=== PATIENT | male | born 1975 | race African-American/Black ===

== ENCOUNTER 2022-12-23 15:53 | Inpatient (IN) | payer SELFPAY ==
[~2022-12-23] VITALS: Ht 195.5 cm; Wt 63.9 kg
--- NOTE | 2022-12-23 16:01 | ED General ---
General Chief Complaint: Dizziness/Syncope Stated Complaint: SYNCOPAL Source of Information: Patient, EMS History of Present Illness Date Seen by Provider: Dec 23, 2022 Time Seen by Provider: 15:50 Initial Comments 47-year-old male type I diabetic presents via EMS after he fell down in the parking lot of [facility]. EMS states that he originally did not want to come with them however they found his blood sugar to be in the 400s so he decided he would get checked out. He tells me that he has neuropathy in his feet and he simply got his feet crossed up causing him to fall down. Denies hitting his head or losing consciousness. He has no pain from the fall. He states his blood sugars been running in the 300 range recently. He takes a short acting insulin with meals and long-acting Lantus, 25 units at night. He states he has been compliant with his regimen. Couple of months ago he was living in [place]. At that time he had a stent placed in his pancreas and is currently trying to get his Medicaid switched to [place] as he moved back here about 5 or 6 weeks ago. He states in a couple of weeks he supposed to have his stent removed or replaced. He denies any recent illness to include fevers chills chest pain abdominal pain. On arrival he has really no complaints at all. EMS reported that his blood pressures were low during transport in the 80s systolic. Blood pressures are normal upon arrival here. He does tell me he has a history of alcoholism but "I had to stop because it was killing my body." He states for the last 4 days he has not had anything to drink. All other systems reviewed and negative except documented per HPI. Voice recognition software was used to help create this chart Allergies and Home Medications Allergies Coded Allergies: No Known Drug Allergies (Unverified , 12/23/22) Patient Home Medication List Home Medication List Reviewed: Yes Review of Systems Review of Systems Constitutional: see HPI Past [id number] Hx Patient Social History Tobacco Use?: Yes Use of E-Cig and/or Vaping dev: Yes Substance use?: No Alcohol Use?: Yes Past Medical History Surgery/Hospitalization HX: Hypertension, pancreatitis Physical Exam Vital Signs Vital Signs - First Documented 12/23/22 15:53 Temp 36.6 Pulse 104 Resp 16 B/P (MAP) 124/83 (97) Pulse Ox 95 O2 Delivery Room Air Capillary Refill : Height, Weight, BMI Height: '" Weight: lbs. oz. kg; BMI Method: General Appearance: No Apparent Distress, WD/WN HEENT: PERRL/EOMI, Normal ENT Inspection, Pharynx Normal Neck: Full Range of Motion, Normal Inspection, Non Tender, Supple Respiratory: Chest Non Tender, Lungs Clear, Normal Breath Sounds, No Accessory Muscle Use, No Respiratory Distress Cardiovascular: Regular Rate, Rhythm, No Murmur, Normal Peripheral Pulses Gastrointestinal: Normal Bowel Sounds, No Organomegaly, No Pulsatile Mass, Non Tender, Soft Extremity: Normal Capillary Refill, Normal Inspection, Normal Range of Motion, Non Tender, No Calf Tenderness Neurologic/Psychiatric: Alert, Oriented x3, No Motor/Sensory Deficits, Normal Mood/Affect, oncology physician assistant II-XII Norm as Tested Skin: Normal Color, Warm/Dry Focused Exam Lactate Level 12/23/22 16:42: Lactic Acid Level 5.08*H Lactic Acid Level Laboratory Tests Test 12/23/22 16:42 Lactic Acid Level 5.08 MMOL/L (0.50-2.00) *H Progress/Results/Core Measures Suspected Sepsis SIRS Temperature: Pulse: Respiratory Rate: Laboratory Tests 12/23/22 15:55: White Blood Count 34.4*H Blood Pressure / Mean: 12/23/22 16:42: Lactic Acid Level 5.08*H Laboratory Tests 12/23/22 15:55: Creatinine 0.77, Platelet Count 139, Total Bilirubin 0.8 Results/Orders Lab Results Laboratory Tests Test 12/23/22 15:55 12/23/22 16:06 12/23/22 16:42 Range/Units White Blood Count 34.4 *H 4.3-11.0 10^3/uL Red Blood Count 3.74 L 4.30-5.52 10^6/uL Hemoglobin 12.9 L 13.3-17.7 g/dL Hematocrit 36 L 40-54 % Mean Corpuscular Volume 95 80-99 fL Mean Corpuscular Hemoglobin 35 H 25-34 pg Mean Corpuscular Hemoglobin Concent 36 32-36 g/dL Red Cell Distribution Width 12.4 10.0-14.5 % Platelet Count 139 130-400 10^3/uL Mean Platelet Volume 12.4 H 9.0-12.2 fL Immature Granulocyte % (Auto) 5 % Neutrophils (%) (Auto) 86 H 42-75 % Lymphocytes (%) (Auto) 3 L 12-44 % Monocytes (%) (Auto) 6 0-12 % Eosinophils (%) (Auto) 0 0-10 % Basophils (%) (Auto) 0 0-10 % Neutrophils # (Auto) 29.5 H 1.8-7.8 10^3/uL Lymphocytes # (Auto) 1.1 1.0-4.0 10^3/uL Monocytes # (Auto) 1.9 H 0.0-1.0 10^3/uL Eosinophils # (Auto) 0.0 0.0-0.3 10^3/uL Basophils # (Auto) 0.1 0.0-0.1 10^3/uL Immature Granulocyte # (Auto) 1.8 H 0.0-0.1 10^3/uL Neutrophils % (Manual) 73 % Lymphocytes % (Manual) 5 % Monocytes % (Manual) 5 % Eosinophils % (Manual) 0 % Basophils % (Manual) 0 % Band Neutrophils 16 % Sodium Level 127 L 135-145 MMOL/L Potassium Level 3.2 L 3.6-5.0 MMOL/L Chloride Level 90 L 98-107 MMOL/L Carbon Dioxide Level 19 L 21-32 MMOL/L Anion Gap 18 H 5-14 MMOL/L Blood Urea Nitrogen 19 H 7-18 MG/DL Creatinine 0.77 0.60-1.30 MG/DL Estimat Glomerular Filtration Rate 111 BUN/Creatinine Ratio 25 Glucose Level 361 H 70-105 MG/DL Calcium Level 9.5 8.5-10.1 MG/DL Corrected Calcium 9.5 8.5-10.1 MG/DL Total Bilirubin 0.8 0.1-1.0 MG/DL Aspartate Amino Transf (AST/SGOT) 74 H 5-34 U/L Alanine Aminotransferase (ALT/SGPT) 109 H 0-55 U/L Alkaline Phosphatase 800 H 40-136 U/L Total Protein 7.8 6.4-8.2 GM/DL Albumin 4.0 3.2-4.5 GM/DL Glucometer 343 H 70-110 MG/DL Lactic Acid Level 5.08 *H 0.50-2.00 MMOL/L My Orders Orders - ARMEN GOULD DO Cbc With Automated Diff (12/23/22 15:56) Comprehensive Metabolic Panel (12/23/22 15:56) Ua Culture If Indicated (12/23/22 15:56) Manual Differential (12/23/22 15:55) Chest 1 View Ap/Pa Only (12/23/22 16:08) Lactic Acid Analyzer (12/23/22 16:22) Blood Culture (12/23/22 16:22) Ceftriaxone 1 Gm Pre-Mix (Rocephin 1 Gm (12/23/22 17:00) Insulin Regular Drip (Myxredlin 100 Unit (12/23/22 17:15) Lactated Ringers (Lr 1000 Ml Iv Solution (12/23/22 17:15) Potassium Cl 10meq/50ml Ivpb (Kcl 10 Meq (12/23/22 17:15) Ed Admission (Communication) (12/23/22 17:19) Medications Given in ED Current Medications Medications Dose Ordered Sig/Paulette Route Start Time Stop Time Status Last Admin Dose Admin Ceftriaxone Sodium/Dextrose 50 ml @ 100 mls/hr ONCE ONCE IV 12/23/22 17:00 12/23/22 17:29 12/23/22 17:11 100 MLS/HR Vital Signs/I&O 12/23/22 15:53 Temp 36.6 Pulse 104 Resp 16 B/P (MAP) 124/83 (97) Pulse Ox 95 O2 Delivery Room Air Capillary Refill : Critical Care Note Critical Care Total Time (minutes) 45 Departure Communication (Admissions) Patient is hemodynamically stable. On arrival he is alert, oriented and nontoxic-appearing. He really has no specific complaints. He himself states he does not think he passed out by bystanders insisted to EMS that he had. He is limited tachycardic but his blood pressures in the 100 systolic range. He is very slight ability suspect that this is likely normal for him. He has a normal MAP. Normal respiratory rate. Initial work-up for DKA revealed a leukocytosis of 34,000. Without I had ordered a chest x-ray for further search for source of infection. Indeed it does look like he is got a right middle lobe infiltrate. He does not have a ton of respiratory symptoms with his tachycardia as well as infiltrate and leukocytosis I went had and ordered him some Rocephin. He does not have any abdominal pain but he is supposed to have his pancreatic stent taken out in a couple of weeks. He has not yet established care here and does not have his Medicaid yet. We will go ahead and admit him for DKA, given IV fluid bolus initially and started on an insulin drip. I have given him LR with potassium minute prior to starting an insulin drip as his potassium was slightly low. I think he would benefit from social media editor consult while he is in the hospital to help him arrange Medicaid and further organize his stent care. The patient is comfortable agreeable to this current plan of care. He is pending transport. I spoke with Dr. Finnegan and she accepts the patient in admission to the ICU. I have placed bridge orders. Impression Primary Impression: DKA (diabetic ketoacidosis) Qualified Codes: E10.10 - Type 1 diabetes mellitus with ketoacidosis without coma Additional Impression: Leukocytosis Qualified Codes: D72.829 - Elevated white blood cell count, unspecified Disposition: 30 STILL A PATIENT Condition: Stable Admissions Decision to Admit Reason: Admit from ER (General) ARMEN GOULD DO Dec 23, 2022 16:01
[2022-12-23 16:05] LABS: BASOPHILS # (AUTO) 0.1 10^3/uL (0.0-0.1); BASOPHILS % (AUTO) 0 % (0-10); EOSINOPHILS % (AUTO) 0 % (0-10); HEMATOCRIT 36 % (40-54); HEMOGLOBIN 12.9 g/dL (13.3-17.7); LYMPHOCYTES # (AUTO) 1.1 10^3/uL (1.0-4.0); LYMPHOCYTES % (AUTO) 3 % (12-44); MEAN CORPUSCULAR HEMOGLOBIN 35 pg (25-34); MEAN CORPUSCULAR HGB CONC 36 g/dL (32-36); MEAN CORPUSCULAR VOLUME 95 fL (80-99); MEAN PLATELET VOLUME 12.4 fL (9.0-12.2); MONOCYTES # (AUTO) 1.9 10^3/uL (0.0-1.0); MONOCYTES % (AUTO) 6 % (0-12); NEUTROPHILS # (AUTO) 29.5 10^3/uL (1.8-7.8); NEUTROPHILS % (AUTO) 86 % (42-75); PLATELET COUNT 139 10^3/uL (130-400)
[2022-12-23 16:07] LABS: WHITE BLOOD COUNT 34.4 10^3/uL (4.3-11.0)
[2022-12-23 16:24] LABS: BAND NEUTROPHILS 16 %; BASOPHILS % (MANUAL) 0 %; EOSINOPHILS % (MANUAL) 0 %; LYMPHOCYTES % (MANUAL) 5 %; MONOCYTES % (MANUAL) 5 %; NEUTROPHILS % (MANUAL) 73 %
[2022-12-23 16:27] LABS: BILIRUBIN,TOTAL 0.8 MG/DL (0.1-1.0); CALCIUM 9.5 MG/DL (8.5-10.1); CREATININE SERUM 0.77 MG/DL (0.60-1.30); POTASSIUM 3.2 MMOL/L (3.6-5.0); TOTAL PROTEIN 7.8 GM/DL (6.4-8.2)
--- NOTE | 2022-12-23 16:37 | Diagnostic Imaging Report ---
CLINICAL INDICATION: Patient with leukocytosis. EXAM: Portable chest x-ray upright view. COMPARISON: None. FINDINGS: Lungs/pleura: There is a small infiltrate involving the right lower lung field region. The remainder of the lungs are clear. There is no pneumothorax. There is no pleural effusion. Mediastinum: Unremarkable. Pulmonary vasculature: Unremarkable. Heart: Unremarkable. Bones/extrathoracic soft tissue: There are hypertrophic spurs involving the thoracic spine. IMPRESSION: There is a small infiltrate involving the right lower lung field region concerning for pneumonia. Dictated by: Dictated on workstation # [id number]
[2022-12-23] MEDS ORDERED: cefTRIAXone 1 GM PRE-MIX 50 ML IV ONE (17:00)
[2022-12-23] MEDS ORDERED: LACTATED RINGERS 1,000 ML IV SCH (17:15)
[2022-12-23] MEDS ORDERED: D5 1/2 NS 1000 ML IV SOLUTION 1,000 ML IV ONE (19:12)
[2022-12-23] MEDS ORDERED: inSUlin (REGULAR) HUMAN 1 UNIT/0.01 ML (CHARGE PER UNIT) IV ONE (19:45)
[2022-12-23 19:57] VITALS: BP 127/84
--- NOTE | 2022-12-23 19:59 | Tele-ICU Progress Note ---
Progress Note 47M DM1, pancreatic vs GB stent (he can not recall) a couple months ago, etoh with last drink 4 days ago, had EMS called after falling in the [employer] parking lot. Stated that he fell due to his neuropathy. Denied LOC or head trauma. However, bystanders insisted to EMS that he had lost conciousness.Glucose found to be in the 400s so he was transported for further evaluation. BP was in the 80s during transportation. In ED, BP had improved to the 100s. Found to have WBC 34, Na 127, K 3.2, CO2 19, Gap 18, Glucose 361, lactic 5.06, AST 74, ALT 109, Alk Phos 800. Beta hydroxy has been cancelled. - DKA: Suspected DKA with hyperglycemia and anion gap acidosis. Although also has lactic acidosis. Beta-hydroxy added on to ED labs. Insulin gtt already running with glucose <200 now. Continue with protocol until anion gap resolves. - sepsis: source unknown. CXR with small infiltrate and patient has cough productive of green sputum, possible early pneumonia. Cultures pending. Rocephin initiated. - EtOH: Remains in the window for withdrawals risk with last drink being 4-5 days ago. Monitor for evidence of withdrawal syndrome. Start CIWA if needed. - hyponatremia: Na 127, likely hypovolemic. Avoid protocolized 1/2NS in the DKA protocol. Use NS when glucose >200 and D5LR when <200. - hypokalemia: K 3.2. Replacement ongoing with 40 meq IV. Will give additional 40 PO given ongoing insulin gtt. - pancreatic vs GB stent: apparently was placed in [place] a couple months ago. He moved to [place] 5-6 weeks ago. He was told it was to come out or be exchanged in the next couple of weeks. Will defer to primary for appropriate consultations to establish ongoing care. Patient assessed via real-time audiovisual monitoring system. CCT 28 min Focused Exam Lactate Level 12/23/22 16:42: Lactic Acid Level 5.08*H Height, Weight, BMI Height: '" Weight: lbs. oz. kg; 18.00 BMI Method: Lactic Acid Level Laboratory Tests Test 12/23/22 16:42 Lactic Acid Level 5.08 MMOL/L (0.50-2.00) *H ESA TOVAR MD Dec 23, 2022 19:59
[2022-12-23] MEDS ORDERED: D5 1/2 NS 1000 ML IV SOLUTION 1,000 ML IV SCH (20:00)
[2022-12-23] MEDS ORDERED: KCL 20 MEQ TAB (K-DUR) PO ONE (20:00)
[2022-12-23] MEDS ORDERED: 1/2 NS IV SOLUTION 1,000 ML IV SCH (20:00)
[2022-12-23] MEDS ORDERED: POTASSIUM CL 10MEQ/50ML IVPB 50 ML IV SCH (20:00)
[2022-12-23] MEDS ORDERED: NS IV 1000 ML 1,000 ML IV SCH (20:00)
[2022-12-23] MEDS ORDERED: D5 LR IV SOLUTION 1,000 ML IV PRN (20:00)
[2022-12-23] MEDS: POTASSIUM CL 10MEQ/50ML IVPB 50 ML IV SCH ×3 (20:12→21:15)
[2022-12-23] MEDS: POTASSIUM CHLORIDE INJ 40 MEQ in LACTATED RINGERS 1,000 ML IV SCH (20:19)
[2022-12-23 20:28] LABS: CALCIUM 9.7 MG/DL (8.5-10.1); CREATININE SERUM 0.8 MG/DL (0.60-1.30); PHOSPHORUS 2.1 MG/DL (2.3-4.7); POTASSIUM 3.1 MMOL/L (3.6-5.0)
[2022-12-23] MEDS ORDERED: RT-ALBUTEROL/IPRATROPIUM 3 ML (DUONEB) VIAL INH PRN (20:30)
[2022-12-23] MEDS: NS IV 1000 ML 1,000 ML IV PRN (22:09)
[2022-12-24] MEDS: POTASSIUM CL 10MEQ/50ML IVPB 50 ML IV SCH ×7 (00:07→07:27)
[2022-12-24] MEDS: POTASSIUM CHLORIDE INJ 40 MEQ in LACTATED RINGERS 1,000 ML IV SCH (00:15)
[2022-12-24] MEDS ORDERED: METHYL SALICYLATE/MENTHOL (BENGAY, MUSCLE RUB) 3 OZ TUBE TP PRN (00:15)
[2022-12-24] MEDS ORDERED: HYDROcodone/APAP 5 MG/325 MG (LORTAB) TAB PO PRN (00:15)
[2022-12-24] MEDS ORDERED: ACETAMINOPHEN 325 MG TABLET PO PRN (00:15)
[2022-12-24 00:47] LABS: POTASSIUM 3.2 MMOL/L (3.6-5.0)
[2022-12-24] MEDS ORDERED: GABAPENTIN 300 MG (NEURONTIN) CAP ONE (00:47)
[2022-12-24 00:48] LABS: CALCIUM 8.6 MG/DL (8.5-10.1)
[2022-12-24] MEDS: GABAPENTIN 300 MG (NEURONTIN) CAP PO SCH ×2 (00:48→08:01)
[2022-12-24 00:52] LABS: CREATININE SERUM 0.67 MG/DL (0.60-1.30)
[2022-12-24] MEDS ORDERED: KCL 20 MEQ TAB (K-DUR) PO ONE (01:00)
[2022-12-24 05:21] LABS: BASOPHILS # (AUTO) 0.1 10^3/uL (0.0-0.1); BASOPHILS % (AUTO) 0 % (0-10); MEAN PLATELET VOLUME 12.3 fL (9.0-12.2)
[2022-12-24 05:23] LABS: EOSINOPHILS % (AUTO) 0 % (0-10); HEMATOCRIT 33 % (40-54); LYMPHOCYTES # (AUTO) 1.5 10^3/uL (1.0-4.0); LYMPHOCYTES % (AUTO) 6 % (12-44); MEAN CORPUSCULAR HEMOGLOBIN 35 pg (25-34); MEAN CORPUSCULAR HGB CONC 37 g/dL (32-36); MEAN CORPUSCULAR VOLUME 97 fL (80-99); MONOCYTES # (AUTO) 1.3 10^3/uL (0.0-1.0); MONOCYTES % (AUTO) 5 % (0-12); NEUTROPHILS # (AUTO) 20.6 10^3/uL (1.8-7.8); NEUTROPHILS % (AUTO) 83 % (42-75); PLATELET COUNT 121 10^3/uL (130-400); WHITE BLOOD COUNT 24.8 10^3/uL (4.3-11.0)
[2022-12-24] MEDS: NS IV 1000 ML 1,000 ML IV PRN (05:27)
[2022-12-24 05:44] LABS: ALBUMIN 3.4 GM/DL (3.2-4.5); POTASSIUM 3.9 MMOL/L (3.6-5.0)
[2022-12-24 05:46] LABS: CALCIUM 9.3 MG/DL (8.5-10.1)
[2022-12-24 05:47] LABS: TOTAL PROTEIN 6.7 GM/DL (6.4-8.2)
[2022-12-24 05:49] LABS: BILIRUBIN,TOTAL 0.7 MG/DL (0.1-1.0)
[2022-12-24 05:50] LABS: PHOSPHORUS 2.5 MG/DL (2.3-4.7)
[2022-12-24 05:51] LABS: CREATININE SERUM 0.75 MG/DL (0.60-1.30)
[2022-12-24] MEDS ORDERED: NS IV 500 ML 500 ML IV PRN (06:15)
--- NOTE | 2022-12-24 08:30 | History & Physical ---
HPI History of Present Illness: Got dizzy and feet went out from under him in the parking lot and he fell yesterday afternoon. He states he was feeling a little down in the last few days. Dizziness kind of hit him suddenly, he stood up from car and took a couple of steps and then fell. He thinks he got up to fast. He had been feeling kind of weak the last few days. He notes that when he has that happen, he knows he needs to check his blood sugar. He usually uses CGM, but he ran out of sensors, uses [employer], was getting free in [place], and is waiting for them, he states his ex is supposed to be picking them up today and sending them. He notes he has a PCP in [place] that he would like for us to get information from, he has a pancreatic stent that needs replaced soon and he doesn't yet have [place] medicaid so is concerned about that. He has been in [place] last 5 years and he broke up with the girl he was with and had no other support there, ended up staying at a hotel, then lost job and then in a homeless penitentiary. Ended up in hospital and his cousin told him to come back home, he is staying with family here. He had to get a stent between his gall bladder, pancreas and liver somewhere, states he was told it needed to be drained because he had lost so much weight, states it drained cloudy fluid. He reports he weighed around 205 lbs about a year ago before the pancreas issues. He believes the stent is supposed to get replaced around January 08. He isn't sure what caused the blockage. Diabetes of uncertain type, states they have gone back and forth, diagnosed about 5 years ago, has been on insulin the whole time. This is the third or fourth time he has had DKA. Source: patient Date seen by provider: Dec 24, 2022 Time Seen by Provider: 08:20 Attending Physician Ellen,Local Physician PCP Admitting Physician: Briana Finnegan MD Attending Physician: Briana Finnegan MD Consult Date of Admission Dec 23, 2022 at 18:55 Home Medications Home Medications Reviewed patient Home Medication Reconciliation performed by pharmacy medication reconciliations morgue technician and/or nursing. Patients Allergies have been reviewed. Allergies Coded Allergies: No Known Drug Allergies (Unverified , 12/23/22) FAN-Thbuiu-Flzwai Hx Patient Social History Smoking Status: Current Everyday Smoker (1/2 ppd) Alcohol Use?: Yes (started drinking again about a week ago, had stopped for a couple of months, was drinking a pint and 6 pack per day; had half pint a week ago, last drink was about 7 days ago) Substance type: Marijuana Tobacco type used: Cigarettes Have you traveled recently?: No Immunizations Up To Date Influenza Vaccine Up-to-Date: Yes; Up-to-Date First/Initial COVID19 Vaccinat: Unsure date Second COVID19 Vaccination Jared: Unsure date Third COVID19 Vaccination Date: Unsure date COVID19 Booster (Date): Unsure date Past Medical History PMHx: Diabetes Neuropathy Pancreatitis SurgHx: Bile duct stent Family Medical History Significant Family History: Diabetes Review of Systems ([facility]) Constitutional: No fever EENTM: nose congestion; No throat pain Respiratory: cough; No short of breath Cardiovascular: No chest pain Gastrointestinal: RUQ (with coughing); No constipation; diarrhea (had diarrhea 6-8 months, was better after pancreatic stent, back to diarrhea last 3-4 days); No melena, No nausea, No vomiting Genitourinary: No dysuria Musculoskeletal: No joint pain, No muscle pain Skin: No rash Psychiatric/Neurological: Denies Anxiety, Denies Depressed Reviewed Test Results Reviewed Test Results Lab Laboratory Tests Test 12/23/22 15:55 12/23/22 16:06 12/23/22 16:42 12/23/22 19:09 Range/Units White Blood Count 34.4 *H 4.3-11.0 10^3/uL Red Blood Count 3.74 L 4.30-5.52 10^6/uL Hemoglobin 12.9 L 13.3-17.7 g/dL Hematocrit 36 L 40-54 % Mean Corpuscular Volume 95 80-99 fL Mean Corpuscular Hemoglobin 35 H 25-34 pg Mean Corpuscular Hemoglobin Concent 36 32-36 g/dL Red Cell Distribution Width 12.4 10.0-14.5 % Platelet Count 139 130-400 10^3/uL Mean Platelet Volume 12.4 H 9.0-12.2 fL Immature Granulocyte % (Auto) 5 % Neutrophils (%) (Auto) 86 H 42-75 % Lymphocytes (%) (Auto) 3 L 12-44 % Monocytes (%) (Auto) 6 0-12 % Eosinophils (%) (Auto) 0 0-10 % Basophils (%) (Auto) 0 0-10 % Neutrophils # (Auto) 29.5 H 1.8-7.8 10^3/uL Lymphocytes # (Auto) 1.1 1.0-4.0 10^3/uL Monocytes # (Auto) 1.9 H 0.0-1.0 10^3/uL Eosinophils # (Auto) 0.0 0.0-0.3 10^3/uL Basophils # (Auto) 0.1 0.0-0.1 10^3/uL Immature Granulocyte # (Auto) 1.8 H 0.0-0.1 10^3/uL Neutrophils % (Manual) 73 % Lymphocytes % (Manual) 5 % Monocytes % (Manual) 5 % Eosinophils % (Manual) 0 % Basophils % (Manual) 0 % Band Neutrophils 16 % Sodium Level 127 L 135-145 MMOL/L Potassium Level 3.2 L 3.6-5.0 MMOL/L Chloride Level 90 L 98-107 MMOL/L Carbon Dioxide Level 19 L 21-32 MMOL/L Anion Gap 18 H 5-14 MMOL/L Blood Urea Nitrogen 19 H 7-18 MG/DL Creatinine 0.77 0.60-1.30 MG/DL Estimat Glomerular Filtration Rate 111 BUN/Creatinine Ratio 25 Glucose Level 361 H 70-105 MG/DL Calcium Level 9.5 8.5-10.1 MG/DL Corrected Calcium 9.5 8.5-10.1 MG/DL Total Bilirubin 0.8 0.1-1.0 MG/DL Aspartate Amino Transf (AST/SGOT) 74 H 5-34 U/L Alanine Aminotransferase (ALT/SGPT) 109 H 0-55 U/L Alkaline Phosphatase 800 H 40-136 U/L Total Protein 7.8 6.4-8.2 GM/DL Albumin 4.0 3.2-4.5 GM/DL Glucometer 343 H 194 H 70-110 MG/DL Lactic Acid Level 5.08 *H 0.50-2.00 MMOL/L Test 12/23/22 19:57 12/23/22 20:17 12/23/22 21:25 12/23/22 21:48 Range/Units Sodium Level 130 L 135-145 MMOL/L Potassium Level 3.1 L 3.6-5.0 MMOL/L Chloride Level 97 L 98-107 MMOL/L Carbon Dioxide Level 17 L 21-32 MMOL/L Anion Gap 16 H 5-14 MMOL/L Blood Urea Nitrogen 16 7-18 MG/DL Creatinine 0.80 0.60-1.30 MG/DL Estimat Glomerular Filtration Rate 110 BUN/Creatinine Ratio 20 Glucose Level 191 H 70-105 MG/DL Lactic Acid Level 5.13 *H 2.51 *H 0.50-2.00 MMOL/L Calcium Level 9.7 8.5-10.1 MG/DL Phosphorus Level 2.1 L 2.3-4.7 MG/DL Magnesium Level 2.0 1.6-2.4 MG/DL Lipase 4 L 8-78 U/L Beta-Hydroxybutyrate (Chem panel) 0.20 0.00-0.27 MMOL/L Glucometer 256 H 264 H 70-110 MG/DL Test 12/23/22 22:29 12/23/22 23:31 12/24/22 00:28 12/24/22 00:29 Range/Units Glucometer 202 H 234 H 162 H 70-110 MG/DL Sodium Level 128 L 135-145 MMOL/L Potassium Level 3.2 L 3.6-5.0 MMOL/L Chloride Level 101 98-107 MMOL/L Carbon Dioxide Level 19 L 21-32 MMOL/L Anion Gap 8 5-14 MMOL/L Blood Urea Nitrogen 14 7-18 MG/DL Creatinine 0.67 0.60-1.30 MG/DL Estimat Glomerular Filtration Rate 116 BUN/Creatinine Ratio 21 Glucose Level 158 H 70-105 MG/DL Lactic Acid Level 1.80 0.50-2.00 MMOL/L Calcium Level 8.6 8.5-10.1 MG/DL Test 12/24/22 01:35 12/24/22 02:33 12/24/22 03:30 12/24/22 04:37 Range/Units Glucometer 249 H 189 H 189 H 227 H 70-110 MG/DL Test 12/24/22 05:13 12/24/22 05:35 12/24/22 06:34 12/24/22 07:27 Range/Units White Blood Count 24.8 H 4.3-11.0 10^3/uL Red Blood Count 3.39 L 4.30-5.52 10^6/uL Hemoglobin 12.0 L 13.3-17.7 g/dL Hematocrit 33 L 40-54 % Mean Corpuscular Volume 97 80-99 fL Mean Corpuscular Hemoglobin 35 H 25-34 pg Mean Corpuscular Hemoglobin Concent 37 H 32-36 g/dL Red Cell Distribution Width 12.1 10.0-14.5 % Platelet Count 121 L 130-400 10^3/uL Mean Platelet Volume 12.3 H 9.0-12.2 fL Immature Granulocyte % (Auto) 5 % Neutrophils (%) (Auto) 83 H 42-75 % Lymphocytes (%) (Auto) 6 L 12-44 % Monocytes (%) (Auto) 5 0-12 % Eosinophils (%) (Auto) 0 0-10 % Basophils (%) (Auto) 0 0-10 % Neutrophils # (Auto) 20.6 H 1.8-7.8 10^3/uL Lymphocytes # (Auto) 1.5 1.0-4.0 10^3/uL Monocytes # (Auto) 1.3 H 0.0-1.0 10^3/uL Eosinophils # (Auto) 0.0 0.0-0.3 10^3/uL Basophils # (Auto) 0.1 0.0-0.1 10^3/uL Immature Granulocyte # (Auto) 1.3 H 0.0-0.1 10^3/uL Percent Immature Platelet Fraction 13.5 H 0.0-7.6 % Sodium Level 133 L 135-145 MMOL/L Potassium Level 3.9 3.6-5.0 MMOL/L Chloride Level 105 98-107 MMOL/L Carbon Dioxide Level 18 L 21-32 MMOL/L Anion Gap 10 5-14 MMOL/L Blood Urea Nitrogen 13 7-18 MG/DL Creatinine 0.75 0.60-1.30 MG/DL Estimat Glomerular Filtration Rate 112 BUN/Creatinine Ratio 17 Glucose Level 157 H 70-105 MG/DL Calcium Level 9.3 8.5-10.1 MG/DL Corrected Calcium 9.8 8.5-10.1 MG/DL Phosphorus Level 2.5 2.3-4.7 MG/DL Magnesium Level 2.0 1.6-2.4 MG/DL Total Bilirubin 0.7 0.1-1.0 MG/DL Aspartate Amino Transf (AST/SGOT) 39 H 5-34 U/L Alanine Aminotransferase (ALT/SGPT) 84 H 0-55 U/L Alkaline Phosphatase 550 H 40-136 U/L Total Protein 6.7 6.4-8.2 GM/DL Albumin 3.4 3.2-4.5 GM/DL Glucometer 131 H 149 H 168 H 70-110 MG/DL Test 12/24/22 08:45 Range/Units Glucometer 350 H 70-110 MG/DL Radiology CXR 12/23/22: "IMPRESSION: There is a small infiltrate involving the right lower lung field region concerning for pneumonia." Physical Exam-([facility]) Physical Exam Vital Signs VS - Last 72 Hours, by Label 12/23/22 12/23/22 12/23/22 12/23/22 15:53 18:15 19:00 19:04 Temp 36.6 36.6 Pulse 104 114 123 123 Resp 16 16 20 B/P (MAP) 124/83 (97) 117/75 113/82 (92) Pulse Ox 95 100 100 O2 Delivery Room Air Room Air Room Air 12/23/22 12/23/22 12/23/22 12/23/22 19:15 19:30 19:45 19:57 Temp 36.6 Pulse 126 131 137 129 Resp 30 21 22 B/P (MAP) 117/94 (102) 91/78 (82) 127/84 (98) Pulse Ox 98 100 99 96 O2 Delivery Room Air Room Air Room Air 12/23/22 12/23/22 12/23/22 12/23/22 19:57 20:00 21:00 21:18 Temp 37.3 Pulse 128 124 121 Resp 32 30 B/P (MAP) 124/81 (95) 112/71 (85) 104/67 (79) Pulse Ox 96 96 98 97 O2 Delivery Room Air Room Air Room Air Room Air 12/23/22 12/23/22 12/23/22 12/23/22 21:30 22:00 23:00 23:59 Pulse 119 118 Resp 31 34 B/P (MAP) 109/75 (86) 98/65 (76) Pulse Ox 97 98 97 98 O2 Delivery Room Air Room Air Room Air Room Air 12/24/22 12/24/22 12/24/22 12/24/22 00:06 01:00 01:00 02:00 Pulse 112 106 106 104 Resp 20 26 B/P (MAP) 104/65 (77) 104/68 (80) 92/62 (72) Pulse Ox 98 99 98 O2 Delivery Room Air Room Air Room Air 12/24/22 12/24/22 12/24/22 12/24/22 03:00 04:00 04:00 05:00 Pulse 95 91 101 Resp 34 23 B/P (MAP) 97/72 (79) 92/64 (73) 98/70 (78) Pulse Ox 100 99 99 100 O2 Delivery Room Air Room Air Room Air Room Air 12/24/22 12/24/22 12/24/22 12/24/22 06:00 06:59 07:00 07:59 Temp 36.3 Pulse 90 88 88 Resp 37 21 B/P (MAP) 92/67 (75) 109/81 (90) Pulse Ox 100 100 O2 Delivery Room Air Room Air 12/24/22 12/24/22 12/24/22 12/24/22 08:00 08:00 09:00 10:00 Pulse 96 97 98 Resp 35 35 11 B/P (MAP) 115/84 (94) 115/91 (99) 115/78 (90) Pulse Ox 100 99 100 100 O2 Delivery Room Air Room Air Room Air Room Air Capillary Refill : Less Than 3 Seconds General Appearance: no apparent distress, thin Respiratory: lungs clear, normal breath sounds Cardiovascular: regular rate, rhythm, no murmur Gastrointestinal: normal bowel sounds, non tender, soft Extremities: no pedal edema Neurologic/Psychiatric: alert, normal mood/affect Skin: normal color, warm/dry Assessment/Plan Assessment/Plan Admission Status: Inpatient Order (span 2 midnights) Reason for Inpatient Admission: DKA requiring insulin drip (1) DKA (diabetic ketoacidosis) Status: Resolved Assessment & Plan: Gap closed with insulin drip and IVF overnight. Change to basal bolus insulin today. Qualifiers: Qualified Codes: E10.10 - Type 1 diabetes mellitus with ketoacidosis without coma (2) Right lower lobe pneumonia Status: Acute Assessment & Plan: Ceftriaxone started in ER. He did have lactic acidosis and leukocytosis on admit, but it is unclear if he had sepsis as his picture was complicated by DKA and symptoms more consistent with DKA/dehydration than infect ion. Given CXR findings, will treat for pneumonia. (3) Pre-syncope Status: Acute Assessment & Plan: Suspect secondary to hypovolemia- has had diarrhea for a few days and was in DKA. (4) Diabetes Status: Chronic Assessment & Plan: Resume basal bolus insulin. Qualifiers: Qualified Codes: E10.65 - Type 1 diabetes mellitus with hyperglycemia (5) Neuropathy Status: Chronic Assessment & Plan: Resume home meds when verified. (6) High risk social situation Status: Chronic Assessment & Plan: resident services supervisor consulted for assistance with Medicaid. Reports stable living situation with family currently. (7) History of heavy alcohol consumption Status: Chronic Assessment & Plan: Last drink a week ago. He reports he knows he needs to abstain due to his pancreatitis and is working on that. (8) Elevated liver enzymes Status: Acute Assessment & Plan: Uncertain baseline with recent pancreas issue and stenting, but they are trending down since admit. Requesting records from [place] for further information. (9) History of pancreatitis Status: Chronic Assessment & Plan: With stenting, patient unsure of reason for stent, records requested. Lipase nml at admit. (10) Diarrhea Status: Chronic Assessment & Plan: Suspect possible pancreatic insufficiency/obstruction given his report of prolonged diarrhea prior to stenting and recurrence recently. Stool cultures ordered. (11) DVT prophylaxis Status: Acute Assessment & Plan: Enoxaparin BRIANA FINNEGAN MD Dec 24, 2022 08:30
[2022-12-24] MEDS ORDERED: inSUlin ASPART (NovoLOG) 1 UNIT/0.01 ML (CHARGE PER UNIT) SC NR ×2 (09:00→12:45)
[2022-12-24] MEDS ORDERED: cefTRIAXone 1 GM PRE-MIX 50 ML IV SCH (09:00)
--- NOTE | 2022-12-24 09:05 | Tele-ICU Progress Note ---
Subjective Date Seen by a Provider: Dec 24, 2022 Time Seen by a Provider: 09:04 Subjective/Events-last exam (Tele-ICU Physician , Progress Note ) Service provided via interactive audio and video telecommunications E-CARE system to a patient admitted to ICU bed in [facility]. Patient is seen today due to persistent need of ICU care Available chart/ vitals / labs / Images reviewed Video assessment done using teleICU camera, rest of exam as per RN He is a 47-year-old -[place] male with past medical history of type 1 diabetes mellitus and 3 or 4 attacks of DKA in the past apparently had a stent in the either pancreatic or gallbladder stent and he does not know the details which was done in [place] now he moved to the [facility] and he has not had any primary care physician yet. Reportedly he needs to have his stent removed in couple of weeks He is presented to the emergency room with complaint of syncopal episode and he thought he had leg weakness due to neuropathy but bystanders reported that he had a loss of consciousness. EMS found his glucose over 400 hence he is brought to the emergency room and he is admitted to the intensive care unit with a diagnosis of diabetic ketoacidosis and started on IV insulin. He had a found to be elevated liver enzymes it is not clear whether it is a new or old. He also has a leukocytosis which is> 34,000. Today he is feeling somewhat better. His anion gap is closed and afebrile. Impression 1. Diabetic ketoacidosis due to noncompliance with insulin 2. Diabetic peripheral neuropathy 3. Syncopal episode probably due to volume depletion 4. Acute kidney injury due to volume depletion 5. Rule out any sepsis from biliary tree. Recommendations 1. We will hydrate the patient with intravenous fluids 2. IV antibiotics 3. Wean insulin drip as tolerated and start on sliding scale coverage. He closed his anion gap today even though his blood sugars are high. 4. We will get an ultrasonogram of the gallbladder and biliary ducts 5. He is eventually needs to be referred to inspector assembly for addressing his biliary stents. I am remotely monitoring this patient from Tele icu station in [place]. I am unable to do the bedside exam, and history/physical and pertinent information is taken from other notes in the computer and bedside staff. Certain portions of this document may have been dictated utilizing voice recognition technology such as [employer]. Inherent to this technology, typographical and grammatical errors may exist. As much as I am diligent to identify and correct to these mistakes, some errors may remain in the document. Critical care time due to gated to this patient today is-30 minutes aproximately Sepsis Event Evaluation Height, Weight, BMI Height: '" Weight: lbs. oz. kg; 16.71 BMI Method: Focused Exam Lactate Level 12/23/22 19:57: Lactic Acid Level 5.13*H 12/23/22 21:48: Lactic Acid Level 2.51*H 12/24/22 00:29: Lactic Acid Level 1.80 Exam Exam Patient acknowledged, consented, and participated in this virtual visit which was conducted using real time audio/video Vital Signs Date Time Temp Pulse Resp B/P (MAP) Pulse Ox O2 Delivery O2 Flow Rate FiO2 12/24/22 07:59 36.3 12/24/22 07:00 88 21 109/81 (90) 100 Room Air 12/24/22 06:59 88 12/24/22 06:00 90 37 92/67 (75) 100 Room Air 12/24/22 05:00 101 23 98/70 (78) 100 Room Air 12/24/22 04:00 99 Room Air 12/24/22 04:00 91 92/64 (73) 99 Room Air 12/24/22 03:00 95 34 97/72 (79) 100 Room Air 12/24/22 02:00 104 26 92/62 (72) 98 Room Air 12/24/22 01:00 106 12/24/22 01:00 106 104/68 (80) 99 Room Air 12/24/22 00:06 112 20 104/65 (77) 98 Room Air 12/23/22 23:59 98 Room Air 12/23/22 23:00 118 34 98/65 (76) 97 Room Air 12/23/22 22:00 119 31 109/75 (86) 98 Room Air 12/23/22 21:30 97 Room Air 12/23/22 21:18 37.3 121 30 104/67 (79) 97 Room Air 12/23/22 21:00 124 112/71 (85) 98 Room Air 12/23/22 20:00 128 32 124/81 (95) 96 Room Air 12/23/22 19:57 96 Room Air 12/23/22 19:57 36.6 129 96 12/23/22 19:45 137 22 127/84 (98) 99 Room Air 12/23/22 19:30 131 21 91/78 (82) 100 Room Air 12/23/22 19:15 126 30 117/94 (102) 98 Room Air 12/23/22 19:04 123 12/23/22 19:00 123 20 113/82 (92) 100 Room Air 12/23/22 18:15 36.6 114 16 117/75 100 Room Air 12/23/22 15:53 36.6 104 16 124/83 (97) 95 Room Air I & O 12/24/22 07:00 Intake Total 4950 ml Output Total 1800 ml Balance 3150 ml Height & Weight Height: '" Weight: lbs. oz. kg; 16.71 BMI Method: General Appearance: No Apparent Distress, WD/WN HEENT: PERRL/EOMI, Normal ENT Inspection, Pharynx Normal Neck: Full Range of Motion, Normal Inspection, Non Tender, Supple Respiratory: Chest Non Tender, Lungs Clear, Normal Breath Sounds, No Accessory Muscle Use, No Respiratory Distress Cardiovascular: Regular Rate, Rhythm, No Murmur, Normal Peripheral Pulses Capillary Refill: Less Than 3 Seconds Extremity: Normal Capillary Refill, Normal Inspection, Normal Range of Motion, Non Tender, No Calf Tenderness Neurologic/Psychiatric: Alert, Oriented x3, No Motor/Sensory Deficits, Normal Mood/Affect, med spa manager II-XII Norm as Tested Skin: Normal Color, Warm/Dry Other comments PE PER RN Results Lab Laboratory Tests 12/23/22 15:55 12/23/22 19:57 12/24/22 00:29 12/24/22 05:13 Assessment/Plan Assessment/Plan ABOVE Critical Care: Critically Ill Patient Time spent with patient (mins): 30 AISHWARYA HICKMAN MD Dec 24, 2022 09:05
[2022-12-24] MEDS ORDERED: ROSU20TA32 PO (11:01)
[2022-12-24] MEDS ORDERED: INSU100I10 SQ (11:01)
[2022-12-24] MEDS ORDERED: LISI5TAB20 PO (11:01)
[2022-12-24] MEDS ORDERED: INSU100I23 SQ (11:01)
[2022-12-24] MEDS ORDERED: GABA800T10 PO (11:01)
[2022-12-24] MEDS ORDERED: HYDR12.56 PO (11:01)
[2022-12-24] MEDS ORDERED: SERT-414 PO (11:01)
[2022-12-24] MEDS: inSUlin ASPART (NovoLOG) 1 UNIT/0.01 ML (CHARGE PER UNIT) SC SCH ×2 (11:24→16:00)
[2022-12-24] MEDS ORDERED: ENOXAPARIN INJECTION 30 MG/0.3 ML SYR SQ SCH (12:00)
[2022-12-24] MEDS ORDERED: GABAPENTIN 400 MG (NEURONTIN) CAP PO SCH (13:00)
--- NOTE | 2022-12-24 15:21 | Diagnostic Imaging Report ---
PROCEDURE: US Gallbladder. TECHNIQUE: Multiple real-time grayscale images were obtained over the right upper quadrant in various projections. INDICATION: Elevated liver enzymes. COMPARISON: None. FINDINGS: Visible portions of the pancreas are unremarkable. The tail is obscured by bowel gas. Visible portions of the aorta and IVC are unremarkable. The liver measures 24 cm in length. Echogenicity appears normal relative to the right kidney. There is no intrahepatic biliary dilatation. The gallbladder wall is thickened at 8 mm, but the gallbladder appears contracted. Initially, the patient was not NPO, but scanning was performed after six hours NPO. No stones are seen. The common bile duct measures 7 mm. There is reportedly a history of a common bile duct stent, but this is not identified on this exam. The main portal vein is hepatopetal. Sonographic Colby's sign is negative. The right kidney measures 12.4 cm in length. There is no hydronephrosis. No free fluid is seen. IMPRESSION: 1. Mildly prominent common bile duct. Choledocholithiasis is not excluded. If clinically indicated, MRCP could be considered. 2. No common bile duct stent is visible. There is no intrahepatic biliary dilatation. 3. Gallbladder wall thickening, thought to be due to contracted gallbladder. No stones or sonographic Colby's sign are present. 4. Hepatomegaly. Dictated by: Dictated on workstation # [id number]
[2022-12-24 18:30] VITALS: BP 136/99
[2022-12-25] MEDS ORDERED: MAGNESIUM 1 GM/100 ML IVPB 100 ML IV SCH (06:00)
[2022-12-25] MEDS ORDERED: KCL 20 MEQ TAB (K-DUR) PO SCH (06:00)
[2022-12-25] MEDS ORDERED: POTASSIUM CL 10MEQ/50ML IVPB 50 ML IV SCH (06:00)
[2022-12-25] MEDS ORDERED: SERTRALINE 100 MG (ZOLOFT) TAB PO SCH (09:00)
[2022-12-25] MEDS ORDERED: ROSUVASTATIN 20 MG (CRESTOR) TABLET PO SCH (09:00)
== END 2022-12-24 18:30 | disposition left against medical advice (07) | DRG 637 ==
LOC: ER FS 15:56 → ICU 18:55
PROVIDERS: ADMIT Family Medicine; ATTEND Family Medicine
DX: E10.10 Type 1 diabetes mellitus with ketoacidosis without coma (principal); A41.9 Sepsis, unspecified organism; J18.9 Pneumonia, unspecified organism; E87.1 Hypo-osmolality and hyponatremia; N17.9 Acute kidney failure, unspecified; I10 Essential (primary) hypertension; D72.829 Elevated white blood cell count, unspecified; E87.6 Hypokalemia; E86.1 Hypovolemia; R19.7 Diarrhea, unspecified; E86.9 Volume depletion, unspecified; E10.40 Type 1 diabetes mellitus with diabetic neuropathy, unspecified
CPT/HCPCS: 36415; 71045; 76705; 80048; 80053; 82010; 82947; 83605; 83690; 83735; 84100; 85007; 85025; 85027; 87040; 87081

== ENCOUNTER 2023-02-04 16:36 | Inpatient (IN) | payer SELFPAY ==
[~2023-02-04] VITALS: Ht 196 cm; Wt 68.8 kg
[~2023-02-04 16:36] MED LIST: GABA800T10 PO; HYDR12.56 PO; INSU100I10 SQ; INSU100I23 SQ; LISI5TAB20 PO; ROSU20TA32 PO; SERT-414 PO
[2023-02-04] MEDS ORDERED: NS IV 1000 ML 1,000 ML IV STA ×2 (16:41→17:40)
--- NOTE | 2023-02-04 16:49 | ED General ---
General Stated Complaint: SEIZURE Source of Information: Patient, EMS, Old Records Exam Limitations: No Limitations History of Present Illness Date Seen by Provider: February 04, 2023 Time Seen by Provider: 16:37 Initial Comments 47-year-old male with past medical history of type 1 diabetes, hypertension, hyperlipidemia, neuropathy, and prior episodes of seizures coming in via EMS from his workplace at [employer] due to altered mental status. On EMS arrival, his glucose was undetectably high, he had an episode where his hand locked up, and shortly after he had some general convulsions that lasted a few seconds. They stated he was not really postictal afterwards, but has been mildly confused. He stated he actually had a low blood sugar this morning around 70. He denies any fever, chest pain, shortness of breath, abdominal pain, nausea, vomiting, focal weakness or numbness, or any other concerns. Allergies and Home Medications Allergies Coded Allergies: No Known Drug Allergies (Unverified , 12/23/22) Patient Home Medication List Home Medication List Reviewed: Yes Gabapentin (Gabapentin) 800 Mg Tablet, 800 MG PO TID, (Reported) Entered as Reported by: STONEY LEE on 12/24/221100 Hydrochlorothiazide (Hydrochlorothiazide) 12.5 Mg Tablet, 12.5 MG PO DAILY, (Reported) Entered as Reported by: STONEY LEE on 12/24/22 110 Insulin Glargine,Hum.rec.anlog (Lantus Solostar) 100 Unit/Ml (3 Ml) Insuln.pen, 25 UNIT SQ BID, (Reported) Entered as Reported by: STONEY LEE on 12/24/22 110 Insulin Lispro (Humalog Kwikpen) 100 Unit/Ml Insuln.pen, UNIT SQ AC, (Reported) Entered as Reported by: STONEY LEE on 12/24/22 110 Lisinopril (Lisinopril) 5 Mg Tablet, 5 MG PO DAILY, (Reported) Entered as Reported by: STONEY LEE on 12/24/221100 Rosuvastatin Calcium (Rosuvastatin Calcium) 20 Mg Tablet, 20 MG PO DAILY, (Reported) Entered as Reported by: STONEY LEE on 12/24/221100 Sertraline HCl (Sertraline HCl) 100 Mg Tablet, 100 MG PO DAILY, (Reported) Entered as Reported by: STONEY LEE on 12/24/22 1101 Review of Systems Review of Systems Constitutional: No fever EENTM: no symptoms reported Respiratory: no symptoms reported Cardiovascular: no symptoms reported Gastrointestinal: no symptoms reported Genitourinary: no symptoms reported Musculoskeletal: no symptoms reported Skin: no symptoms reported Psychiatric/Neurological: See HPI Past Ogbepxc-Onmyfg-Nxduek Hx Patient Social History Substance use?: Yes Substance type: Marijuana Immunizations Up To Date First/Initial COVID19 Vaccinat: Unsure date Second COVID19 Vaccination Jared: Unsure date Third COVID19 Vaccination Date: Unsure date Past Medical History Surgery/Hospitalization HX: Hypertension, pancreatitis Family Medical History Diabetes Physical Exam Vital Signs Vital Signs - First Documented 02/04/23 16:40 Temp 36.4 Pulse 104 Resp 16 B/P (MAP) 137/85 (102) Pulse Ox 99 O2 Delivery Room Air Capillary Refill : Height, Weight, BMI Height: '" Weight: lbs. oz. kg; 16.71 BMI Method: General Appearance: No Apparent Distress, Chronically ill, Thin Eyes: Bilateral Eye Normal Inspection, Bilateral Eye PERRL, Bilateral Eye EOMI HEENT: PERRL/EOMI, Normal ENT Inspection, Pharynx Normal Neck: Full Range of Motion, Normal Inspection, Non Tender, Supple Respiratory: Chest Non Tender, Lungs Clear, Normal Breath Sounds, No Accessory Muscle Use, No Respiratory Distress Cardiovascular: No Edema, Normal Peripheral Pulses, Tachycardia Gastrointestinal: Normal Bowel Sounds, Non Tender, Soft; No Distended, No Guarding Back: Normal Inspection, No CVA Tenderness, No Vertebral Tenderness Extremity: Normal Capillary Refill, Normal Inspection, Normal Range of Motion, Non Tender, No Calf Tenderness, No Pedal Edema Neurologic/Psychiatric: Alert, Oriented x3, No Motor/Sensory Deficits, Normal Mood/Affect, pickup driver II-XII Norm as Tested, Other (Slow slightly slurred speech) Skin: Normal Color, Warm/Dry Focused Exam Lactate Level 02/04/23 16:45: Lactic Acid Level 8.92*H 02/04/23 19:00: Lactic Acid Level 1.55 Lactic Acid Level Laboratory Tests Test 02/04/23 16:45 02/04/23 19:00 Lactic Acid Level 8.92 MMOL/L (0.50-2.00) *H 1.55 MMOL/L (0.50-2.00) Progress/Results/Core Measures Suspected Sepsis SIRS Temperature: Pulse: Respiratory Rate: Laboratory Tests 02/04/23 16:45: White Blood Count 4.9 Blood Pressure / Mean: 02/04/23 16:45: Lactic Acid Level 8.92*H 02/04/23 19:00: Lactic Acid Level 1.55 Laboratory Tests 02/04/23 16:45: Creatinine 0.77, INR Comment 1.0, Platelet Count 234, Total Bilirubin 0.4 Results/Orders Lab Results Laboratory Tests Test 02/04/23 16:45 02/04/23 17:45 02/04/23 19:00 02/04/23 20:54 Range/Units White Blood Count 4.9 4.3-11.0 10^3/uL Red Blood Count 3.60 L 4.30-5.52 10^6/uL Hemoglobin 11.8 L 13.3-17.7 g/dL Hematocrit 40 40-54 % Mean Corpuscular Volume 111 H 80-99 fL Mean Corpuscular Hemoglobin 33 25-34 pg Mean Corpuscular Hemoglobin Concent 30 L 32-36 g/dL Red Cell Distribution Width 13.7 10.0-14.5 % Platelet Count 234 130-400 10^3/uL Mean Platelet Volume 11.3 9.0-12.2 fL Immature Granulocyte % (Auto) 0 % Neutrophils (%) (Auto) 80 H 42-75 % Lymphocytes (%) (Auto) 11 L 12-44 % Monocytes (%) (Auto) 9 0-12 % Eosinophils (%) (Auto) 0 0-10 % Basophils (%) (Auto) 1 0-10 % Neutrophils # (Auto) 3.9 1.8-7.8 10^3/uL Lymphocytes # (Auto) 0.5 L 1.0-4.0 10^3/uL Monocytes # (Auto) 0.4 0.0-1.0 10^3/uL Eosinophils # (Auto) 0.0 0.0-0.3 10^3/uL Basophils # (Auto) 0.0 0.0-0.1 10^3/uL Immature Granulocyte # (Auto) 0.0 0.0-0.1 10^3/uL Prothrombin Time 13.2 12.2-14.7 SEC INR Comment 1.0 0.8-1.4 Activated Partial Thromboplast Time 29 24-35 SEC Venous Blood pH 7.20 L 7.31-7.41 Venous Blood Partial Pressure CO2 38 L 40-52 MMHG Venous Blood HCO3 15 L 22-28 MMOL/L Sodium Level 113 *L 135-145 MMOL/L Potassium Level 5.1 H 3.6-5.0 MMOL/L Chloride Level 74 L 98-107 MMOL/L Carbon Dioxide Level 14 L 21-32 MMOL/L Anion Gap 25 H 5-14 MMOL/L Blood Urea Nitrogen 15 7-18 MG/DL Creatinine 0.77 0.60-1.30 MG/DL Estimat Glomerular Filtration Rate 111 BUN/Creatinine Ratio 19 Glucose Level 1165 *H 70-105 MG/DL Lactic Acid Level 8.92 *H 1.55 0.50-2.00 MMOL/L Calcium Level 9.1 8.5-10.1 MG/DL Corrected Calcium 9.0 8.5-10.1 MG/DL Magnesium Level 2.5 H 1.6-2.4 MG/DL Total Bilirubin 0.4 0.1-1.0 MG/DL Aspartate Amino Transf (AST/SGOT) 319 H 5-34 U/L Alanine Aminotransferase (ALT/SGPT) 249 H 0-55 U/L Alkaline Phosphatase 806 H 40-136 U/L Troponin I < 0.30 <0.30 NG/ML Total Protein 6.6 6.4-8.2 GM/DL Albumin 4.1 3.2-4.5 GM/DL Lipase 16 8-78 U/L Serum Alcohol < 10 <10 MG/DL Urine Color PALE YELLOW Urine Clarity CLEAR Urine pH 5.5 5-9 Urine Specific [place] <=1.005 1.016-1.022 Urine Protein NEGATIVE NEGATIVE Urine Glucose (UA) 3+ H NEGATIVE Urine Ketones TRACE H NEGATIVE Urine Nitrite NEGATIVE NEGATIVE Urine Bilirubin NEGATIVE NEGATIVE Urine Urobilinogen 0.2 < = 1.0 MG/DL Urine Leukocyte Esterase NEGATIVE NEGATIVE Urine RBC (Auto) NEGATIVE NEGATIVE Urine RBC NONE /HPF Urine WBC 0-2 /HPF Urine Squamous Epithelial Cells RARE /HPF Urine Crystals NONE /LPF Urine Bacteria NEGATIVE /HPF Urine Casts NONE /LPF Urine Mucus NEGATIVE /LPF Urine Culture Indicated NO Urine Opiates Screen NEGATIVE NEGATIVE Urine Oxycodone Screen NEGATIVE NEGATIVE Urine Methadone Screen NEGATIVE NEGATIVE Urine Propoxyphene Screen NEGATIVE NEGATIVE Urine Barbiturates Screen NEGATIVE NEGATIVE Ur Tricyclic Antidepressants Screen NEGATIVE NEGATIVE Urine Phencyclidine Screen NEGATIVE NEGATIVE Urine Amphetamines Screen NEGATIVE NEGATIVE Urine Methamphetamines Screen NEGATIVE NEGATIVE Urine Benzodiazepines Screen NEGATIVE NEGATIVE Urine Cocaine Screen NEGATIVE NEGATIVE Urine Cannabinoids Screen POSITIVE H NEGATIVE My Orders Orders - HANNAH ANDERSON MD Ct Head Wo (02/04/23 16:41) Cbc With Automated Diff (02/04/23 16:41) Comprehensive Metabolic Panel (02/04/23 16:41) Drug Screen Stat (Urine) (02/04/23 16:41) Lactic Acid Analyzer (02/04/23 16:41) Lipase (02/04/23 16:41) Magnesium (02/04/23 16:41) Protime With Inr (02/04/23 16:41) Partial Thromboplastin Time (02/04/23 16:41) Ua Culture If Indicated (02/04/23 16:41) Troponin I Fs (02/04/23 16:41) Chest 1 View Ap/Pa Only (02/04/23 16:41) Accucheck Stat ONCE (02/04/23 16:41) Ed Iv/Invasive Line Start (02/04/23 16:41) Ekg Tracing (02/04/23 16:41) Monitor-Rhythm Ecg Trace Only (02/04/23 16:41) Ns Iv 1000 Ml (Sodium Chloride 0.9%) (02/04/23 16:41) Venous Blood Gas (02/04/23 16:41) Alcohol (02/04/23 16:41) Beta Hydroxybutyrate (02/04/23 16:41) Levetiracetam Injection (Keppra Injectio (02/04/23 16:45) Lorazepam Injection (Ativan Injection) (02/04/23 17:20) Lorazepam Injection (Ativan Injection) (02/04/23 17:45) Ct Abdomen/Pelvis W (02/04/23 17:40) Ns Iv 1000 Ml (Sodium Chloride 0.9%) (02/04/23 17:40) Insulin (Regular) Human (Novolin R (Per (02/04/23 17:45) Catheter(Urinary) Insert & Ass 03,15 (02/04/23 17:40) Insulin Regular Drip (Myxredlin 100 Unit (02/04/23 17:45) Accucheck Q1hr Q1HR (02/04/23 17:40) Potassium Cl 10meq/50ml Ivpb (Kcl 10 Meq (02/04/23 17:45) Follow Hypoglycemia Protocol (02/04/23 17:40) Iohexol Injection (Omnipaque 350 Mg/Ml 1 (02/04/23 18:00) Received Contrast (Hold Metformin- Contr (02/04/23 18:00) Ns (Ivpb) (Sodium Chloride 0.9% Ivpb Bag (02/04/23 18:00) Levetiracetam 1000 Mg/Ns 100ml (Keppra I (02/04/23 18:00) Venous Blood Gas (02/04/23 20:54) Medications Given in ED Current Medications Medications Dose Ordered Sig/Paulette Route Start Time Stop Time Status Last Admin Dose Admin Insulin Human Regular 10 unit ONCE ONCE IV 02/04/23 17:45 02/04/23 17:46 DC 02/04/23 18:10 10 UNIT Iohexol 100 ml ONCE ONCE IV 02/04/23 18:00 02/04/23 18:33 DC 02/04/23 18:13 80 ML Lorazepam 2 mg PRN PRN IVP 02/04/23 17:45 02/04/23 17:20 1 MG Sodium Chloride 100 ml ONCE ONCE IV 02/04/23 18:00 02/04/23 18:33 DC 02/04/23 18:14 100 ML Vital Signs/I&O 02/04/23 16:40 Temp 36.4 Pulse 104 Resp 16 B/P (MAP) 137/85 (102) Pulse Ox 99 O2 Delivery Room Air Capillary Refill : Progress Note : Progress Note 47-year-old male with above history coming in after seizure-like episode. ABCs were intact and vitals were stable on presentation although he did appear postictal. History was difficult to obtain as he was confused. An IV was placed and basic labs were obtained. His glucose is elevated greater than 1100, anion gap elevated 25, normal creatinine, normal white blood cell count, elevated lactate 8.9, pseudohyponatremia of 113 with a correcting to 130, pH 7.2, bicarb 15, ketones in the urine, potassium of 5.1. He was given 3 L of IV fluids in total, IV potassium, IV insulin bolus followed by an insulin drip. He was also given Ativan after seizure witnessed here in the ER as well as Keppra. CT head negative for acute findings. CT abdomen pelvis with nothing obviously acute, but they recommended an MRCP potentially. I contacted Dr. Luong who will admit the patient to the intensive care unit for further evaluation and management, I then contacted the ICU physician and give signout ECG Initial ECG Impression Date: February 04, 2023 Initial ECG Impression Time: 17:42 Initial ECG Rate: 102 Initial ECG Rhythm: S.Tach Comment Narrow QRS, borderline right axis deviation, no STEMI Diagnostic Imaging Diagonstic Imaging: Xray (chest), CT (head) Comments [facility], [place] NAME: SERINA SHORE [facility] REC#: [id number] PT STATUS: REG ER : 1975 PHYSICIAN: HANNAH ANDERSON MD ADMIT DATE: 02/04/23/ER FS Draft Date of Exam:02/04/23 CHEST 1 VIEW AP/PA ONLY INDICATION: Seizure. Altered mental status. COMPARISON: 12/23/2022. FINDINGS: Lungs are slightly diminished in terms of overall volume. Some mild perihilar atelectasis. The prior opacities at the right base on comparison examination have resolved. There is no new consolidation or pneumonia. There is no effusion. There is no pneumothorax. Heart size is appropriate. Pulmonary vascularity is normal. IMPRESSION: 1. Mildly diminished lung volumes with minimal perihilar atelectasis. There are no findings of recurrent pneumonia or edema. Dictated on workstation # [id number] Dict: 02/04/23 1720 Trans: 02/04/23 1722 [id number] Interpreted by: CORINNE DOMINGUEZ MD Electronically signed by: NAME: SERINA SHORE [employer] REC#: [id number] PT STATUS: REG ER : 1975 PHYSICIAN: HANNAH ANDERSON MD ADMIT DATE: 02/04/23/ER FS Signed Date of Exam:02/04/23 CT ABDOMEN/PELVIS W INDICATION: Altered mental status, elevated liver enzymes. TECHNIQUE: Multiple contiguous axial images were obtained through the abdomen and pelvis after administration of intravenous contrast. Auto Exposure Controls were utilized during the CT exam to meet ALARA standards for radiation dose reduction. All CT scans use one or more of the following dose optimizing techniques: Automated exposure control, MA and/or KvP adjustment based on patient size and exam type or iterative reconstruction. There is no previous CT for comparison. FINDINGS: Visualized portions of the lung bases appear clear. There were no pleural fluid collections. There is no free intraperitoneal air. The liver shows no discrete focal lesion. Portal vein appears to be patent. Gallbladder is contracted, and therefore its evaluation is limited. The spleen and adrenals and kidneys appear normal. There are multiple calcifications scattered throughout the pancreas compatible with chronic pancreatitis, with dilatation of the pancreatic duct. There is a questionable pancreatic duct stone. There is no retroperitoneal mass or adenopathy. There is no ascites. There is a Ovalles catheter in the bladder, but the bladder is not decompressed. Intestinal loops show prominent stool throughout the colon. There is distention of the stomach. There is a lytic lesion in the right iliac bone measuring 2.8 cm, of uncertain etiology. MRI or bone scan may be helpful for further evaluation. IMPRESSION: No focal liver lesion is seen. There are pancreatic calcifications compatible with chronic pancreatitis, with possible pancreatic duct stone, there is dilatation of the pancreatic duct. MRCP may be helpful for further evaluation. There is distention of the stomach. Intestinal loops show no overt obstruction. There is a Ovalles catheter in the bladder, but the bladder is not decompressed, evaluate for Ovalles catheter output. There is a lytic lesion in the right iliac bone of uncertain significance, consider MR evaluation. Dictated by: Dictated on workstation # [id number] Dict: 02/04/236 Trans: 02/04/231907 [id number] Interpreted by: ANGELA ROCHE MD Electronically signed by: ANGELA ROCHE MD 02/04/238 Critical Care Note Critical Care Start Time: 16:37 Stop Time: 20:57 Total Time (minutes) Patient was at significant risk for hemodynamic compromise given his metabolic abnormalities. He required frequent reassessment, insulin drip, and multiple conversations with different physicians. All time billed for critical care was separate from procedures. Departure Impression Primary Impression: DKA (diabetic ketoacidosis) Qualified Codes: E10.10 - Type 1 diabetes mellitus with ketoacidosis without coma Additional Impression: Seizure Disposition: 30 STILL A PATIENT Condition: Stable Admissions Decision to Admit Reason: Admit from ER (General) Decision to Admit/Date: February 04, 2023 Time/Decision to Admit Time: 17:50 Transfer Transfer Facility: [facility] Method of Transfer: EMS Departure-Patient Inst. Referrals: NO,LOCAL PHYSICIAN (PCP/Family) Primary Care Physician HANNAH ANDERSON MD February 04, 2023 16:49
[2023-02-04 16:56] LABS: BASOPHILS % (AUTO) 1 % (0-10); EOSINOPHILS % (AUTO) 0 % (0-10); HEMATOCRIT 40 % (40-54); HEMOGLOBIN 11.8 g/dL (13.3-17.7); LYMPHOCYTES # (AUTO) 0.5 10^3/uL (1.0-4.0); LYMPHOCYTES % (AUTO) 11 % (12-44); MEAN CORPUSCULAR HEMOGLOBIN 33 pg (25-34); MEAN CORPUSCULAR HGB CONC 30 g/dL (32-36); MEAN CORPUSCULAR VOLUME 111 fL (80-99); MEAN PLATELET VOLUME 11.3 fL (9.0-12.2); MONOCYTES # (AUTO) 0.4 10^3/uL (0.0-1.0); MONOCYTES % (AUTO) 9 % (0-12); NEUTROPHILS # (AUTO) 3.9 10^3/uL (1.8-7.8); NEUTROPHILS % (AUTO) 80 % (42-75); PLATELET COUNT 234 10^3/uL (130-400); WHITE BLOOD COUNT 4.9 10^3/uL (4.3-11.0)
[2023-02-04 17:17] LABS: PROTHROMBIN TIME PATIENT 13.2 SEC (12.2-14.7)
[2023-02-04] MEDS ORDERED: LORazepam INJ 2 MG/ML (ATIVAN) VIAL ONE (17:20)
--- NOTE | 2023-02-04 17:23 | Diagnostic Imaging Report ---
INDICATION: Seizure. Altered mental status. COMPARISON: 12/23/2022. FINDINGS: Lungs are slightly diminished in terms of overall volume. Some mild perihilar atelectasis. The prior opacities at the right base on comparison examination have resolved. There is no new consolidation or pneumonia. There is no effusion. There is no pneumothorax. Heart size is appropriate. Pulmonary vascularity is normal. IMPRESSION: 1. Mildly diminished lung volumes with minimal perihilar atelectasis. There are no findings of recurrent pneumonia or edema. Dictated by: Dictated on workstation # [id number]
[2023-02-04 17:26] LABS: BUN/CREATININE RATIO 19; CARBON DIOXIDE 14 MMOL/L (21-32); CHLORIDE 74 MMOL/L (98-107); CREATININE SERUM 0.77 MG/DL (0.60-1.30); GFR ESTIMATED 111; POTASSIUM 5.1 MMOL/L (3.6-5.0); SODIUM 113 MMOL/L (135-145)
[2023-02-04 17:27] LABS: ALANINE AMINOTRANSFERASE 249 U/L (0-55); ALKALINE PHOSPHATASE 806 U/L (40-136); BILIRUBIN,TOTAL 0.4 MG/DL (0.1-1.0); CALCIUM 9.1 MG/DL (8.5-10.1); GLUCOSE 1165 MG/DL (70-105); MAGNESIUM 2.5 MG/DL (1.6-2.4)
[2023-02-04 17:28] LABS: ALBUMIN 4.1 GM/DL (3.2-4.5); LIPASE 16 U/L (8-78); TOTAL PROTEIN 6.6 GM/DL (6.4-8.2)
--- NOTE | 2023-02-04 17:41 | Diagnostic Imaging Report ---
PROCEDURE: CT head without contrast. TECHNIQUE: Multiple contiguous axial images were obtained through the brain without the use of intravenous contrast. Auto Exposure Controls were utilized during the CT exam to meet ALARA standards for radiation dose reduction. INDICATION: Seizure. COMPARISON: None available FINDINGS: CT of the head demonstrates no evidence of an acute intracranial abnormality. There is no evidence of intracranial hemorrhage. There is no extra-axial fluid collection, mass effect or shift. Trent and white matter differentiation appear preserved. There is no abnormal hypodensity within the basal ganglia. The ventricles are appropriate in size and configuration. There is no evidence of hydrocephalus. The basilar cisterns are patent. The posterior fossa is unremarkable. Mastoids and visualized paranasal sinuses appear clear. Orbital contents are unremarkable. There is no calvarial abnormality. IMPRESSION: 1. No CT evidence of an acute intracranial abnormality. Dictated by: Dictated on workstation # [id number]
[2023-02-04] MEDS ORDERED: inSUlin (REGULAR) HUMAN 1 UNIT/0.01 ML (CHARGE PER UNIT) IV ONE (17:45)
[2023-02-04] MEDS ORDERED: LORazepam INJ 2 MG/ML (ATIVAN) VIAL IVP PRN (17:45)
[2023-02-04 17:54] LABS: BILIRUBIN,URINE NEGATIVE (NEGATIVE); CLARITY,URINE CLEAR; GLUCOSE, URINE (UA) 3+ (NEGATIVE); KETONES,URINE TRACE (NEGATIVE); LEUKOCYTE ESTERASE ,URINE NEGATIVE (NEGATIVE); NITRITE,URINE NEGATIVE (NEGATIVE); PH,URINE 5.5 (5-9); PROTEIN,URINE NEGATIVE (NEGATIVE)
[2023-02-04 17:59] LABS: BACTERIA,URINE NEGATIVE /HPF; COLOR,URINE PALE YELLOW; SQUAMOUS EPITHELIAL CELL,UR RARE /HPF; WBC,URINE 0-2 /HPF
[2023-02-04] MEDS ORDERED: IOHEXOL 350 MG/ML 100 ML (OMNIPAQUE 350) VIAL IV ONE (18:00)
[2023-02-04] MEDS ORDERED: NS 100 ML (IVPB) BAG IV ONE (18:00)
[2023-02-04] MEDS ORDERED: levETIRAcetam 1000 mg/NS 100ml 100 ML IV ONE (18:00)
[2023-02-04] MEDS ORDERED: HOLD METFORMIN - RECEIVED CONTRAST 20 ML VIAL IV SCH (18:00)
[2023-02-04 18:03] LABS: AMPHETAMINE SCREEN, URINE NEGATIVE (NEGATIVE); BARBITURATE SCREEN URINE NEGATIVE (NEGATIVE); BENZODIAZEPINES SCREEN URINE NEGATIVE (NEGATIVE); CANNABINOID SCREEN, URINE POSITIVE (NEGATIVE); COCAINE SCREEN URINE NEGATIVE (NEGATIVE); METHADONE STAT NEGATIVE (NEGATIVE); OPIATE SCREEN URINE NEGATIVE (NEGATIVE); OXYCODONE STAT NEGATIVE (NEGATIVE); PROPOXYPHENE STAT NEGATIVE (NEGATIVE); TRICYCLIC ANTIDEPRESSANTS SCRE NEGATIVE (NEGATIVE)
[2023-02-04] MEDS: POTASSIUM CL 10MEQ/50ML IVPB 50 ML IV SCH ×2 (18:08→23:51)
--- NOTE | 2023-02-04 18:24 | Diagnostic Imaging Report ---
INDICATION: Altered mental status, elevated liver enzymes. TECHNIQUE: Multiple contiguous axial images were obtained through the abdomen and pelvis after administration of intravenous contrast. Auto Exposure Controls were utilized during the CT exam to meet ALARA standards for radiation dose reduction. All CT scans use one or more of the following dose optimizing techniques: Automated exposure control, MA and/or KvP adjustment based on patient size and exam type or iterative reconstruction. There is no previous CT for comparison. FINDINGS: Visualized portions of the lung bases appear clear. There were no pleural fluid collections. There is no free intraperitoneal air. The liver shows no discrete focal lesion. Portal vein appears to be patent. Gallbladder is contracted, and therefore its evaluation is limited. The spleen and adrenals and kidneys appear normal. There are multiple calcifications scattered throughout the pancreas compatible with chronic pancreatitis, with dilatation of the pancreatic duct. There is a questionable pancreatic duct stone. There is no retroperitoneal mass or adenopathy. There is no ascites. There is a Ovalles catheter in the bladder, but the bladder is not decompressed. Intestinal loops show prominent stool throughout the colon. There is distention of the stomach. There is a lytic lesion in the right iliac bone measuring 2.8 cm, of uncertain etiology. MRI or bone scan may be helpful for further evaluation. IMPRESSION: No focal liver lesion is seen. There are pancreatic calcifications compatible with chronic pancreatitis, with possible pancreatic duct stone, there is dilatation of the pancreatic duct. MRCP may be helpful for further evaluation. There is distention of the stomach. Intestinal loops show no overt obstruction. There is a Ovalles catheter in the bladder, but the bladder is not decompressed, evaluate for Ovalles catheter output. There is a lytic lesion in the right iliac bone of uncertain significance, consider MR evaluation. Dictated by: Dictated on workstation # [id number]
[2023-02-04] MEDS ORDERED: ONDANSETRON 4 MG/2 ML (SDV) Z0FRAN IV PRN (22:30)
[2023-02-04] MEDS ORDERED: LORazepam INJ 2 MG/ML (ATIVAN) VIAL IV PRN (22:30)
[2023-02-04] MEDS ORDERED: LACTATED RINGERS 1,000 ML IV SCH (22:30)
[2023-02-04 23:03] LABS: CALCIUM 8.6 MG/DL (8.5-10.1); CREATININE SERUM 1.17 MG/DL (0.60-1.30); POTASSIUM 3.7 MMOL/L (3.6-5.0)
[2023-02-04] MEDS ORDERED: POTASSIUM CL 10MEQ/50ML IVPB 50 ML IV PRN (23:30)
[2023-02-04] MEDS ORDERED: NS IV 500 ML 500 ML IV PRN (23:30)
[2023-02-04] MEDS: LACTATED RINGERS 1,000 ML IV SCH (23:51)
--- NOTE | 2023-02-04 23:53 | Tele-ICU Progress Note ---
Progress Note 47M with DM1, HTN, HLD, neuropathy, seizure sent from work ([employer]) via EMS for AMS. On EMS arrival glucometer reading "high". Shortly after had some seizure like activity lasting a few seconds. Not post-ictal afterwards. Mildly confused before and after the event. On prior admits, noted to have a lot of candy in his personal belongings. On arrival to ED he did appear to be postictal, vitals otherwise intact. Found to have glucose 1147, gap 25, lactic 8.9, Na 113, pH 7.2, bicarb 15, + urine ketones. He was given 3L IVF and started on insulin gtt. Had another witnessed seizure in ED, given ativan and keppra. CT head negative. A/P: - DKA: DKA protocol in place with insulin gtt ongoing, serial lab monitoring. When gap is closed can transition back to home regimen. - seizures: continue home rx. - psuedohyponatremia: initial Na 113, but corrected to 130. Now 131, correcting to 140. Continue LR, monitoring on serial labs. Slow correction not possible in setting of hyperglycemia correction. - transaminitis: unclear etiology. Repeat ordered for AM. Patient assessed via real-time audiovisual communication system. CCT 12 min Focused Exam Lactate Level 02/04/23 16:45: Lactic Acid Level 8.92*H 02/04/23 19:00: Lactic Acid Level 1.55 Height, Weight, BMI Height: '" Weight: lbs. oz. kg; 18.00 BMI Method: ESA TOVAR MD February 04, 2023 23:53
[2023-02-05] MEDS: D5 LR IV SOLUTION 1,000 ML IV SCH ×4 (00:49→13:06)
[2023-02-05 00:51] LABS: POTASSIUM 3.8 MMOL/L (3.6-5.0)
[2023-02-05 00:52] LABS: CALCIUM 9.2 MG/DL (8.5-10.1)
[2023-02-05 00:56] LABS: CREATININE SERUM 0.95 MG/DL (0.60-1.30)
[2023-02-05] MEDS: POTASSIUM CL 10MEQ/50ML IVPB 50 ML IV SCH ×6 (01:01→08:46)
[2023-02-05] MEDS: LACTATED RINGERS 1,000 ML IV SCH ×3 (03:30→13:06)
[2023-02-05 04:28] LABS: BASOPHILS % (AUTO) 1 % (0-10); EOSINOPHILS # (AUTO) 0.1 10^3/uL (0.0-0.3); EOSINOPHILS % (AUTO) 1 % (0-10); HEMATOCRIT 32 % (40-54); HEMOGLOBIN 11.7 g/dL (13.3-17.7); LYMPHOCYTES # (AUTO) 1.3 10^3/uL (1.0-4.0); LYMPHOCYTES % (AUTO) 15 % (12-44); MEAN CORPUSCULAR HEMOGLOBIN 33 pg (25-34); MEAN CORPUSCULAR HGB CONC 37 g/dL (32-36); MEAN CORPUSCULAR VOLUME 91 fL (80-99); MONOCYTES # (AUTO) 0.9 10^3/uL (0.0-1.0); MONOCYTES % (AUTO) 10 % (0-12); NEUTROPHILS # (AUTO) 6.4 10^3/uL (1.8-7.8); NEUTROPHILS % (AUTO) 73 % (42-75); PLATELET COUNT 208 10^3/uL (130-400); WHITE BLOOD COUNT 8.8 10^3/uL (4.3-11.0)
[2023-02-05 04:39] LABS: ALBUMIN 3.4 GM/DL (3.2-4.5); POTASSIUM 3.8 MMOL/L (3.6-5.0)
[2023-02-05 04:40] LABS: CALCIUM 8.4 MG/DL (8.5-10.1)
[2023-02-05 04:43] LABS: BILIRUBIN,TOTAL 0.4 MG/DL (0.1-1.0)
[2023-02-05 04:45] LABS: CREATININE SERUM 0.82 MG/DL (0.60-1.30); PHOSPHORUS 2.5 MG/DL (2.3-4.7)
[2023-02-05 04:48] LABS: MAGNESIUM 2.1 MG/DL (1.6-2.4)
[2023-02-05] MEDS ORDERED: POTASSIUM CL 10MEQ/50ML IVPB 50 ML IV SCH (06:00)
[2023-02-05] MEDS ORDERED: KCL 20 MEQ TAB (K-DUR) PO SCH (06:00)
[2023-02-05] MEDS ORDERED: MAGNESIUM 1 GM/100 ML IVPB 100 ML IV SCH (06:00)
[2023-02-05 08:42] LABS: CALCIUM 8.3 MG/DL (8.5-10.1); CREATININE SERUM 0.74 MG/DL (0.60-1.30); POTASSIUM 4.3 MMOL/L (3.6-5.0)
--- NOTE | 2023-02-05 09:55 | Tele-ICU Progress Note ---
Subjective Date Seen by a Provider: February 05, 2023 Time Seen by a Provider: 09:55 Subjective/Events-last exam (Tele-ICU Physician , Progress Note ) Service provided via interactive audio and video telecommunications E-CARE system to a patient admitted to ICU bed in [facility]. Patient is seen today due to persistent need of ICU care Available chart/ vitals / labs / Images reviewed Video assessment done using teleICU camera, rest of exam as per RN Discussed with RN Events overnight : Afebrile hemodynamically stable Respiratory - ra I/O =+ Pressors- no Hospital course: (02/04) 47yr old male admitted with seizure-like activity and hyperglycemia A/P DKA -h insulin gtt to stop today - resume home meds - seizures? -Ativan after seizure witnessed here in the ER as well as Keppra. CT head negative for acute findings - as per PCP - psuedohyponatremia -resolved - transaminitis: unclear etiology. - CT abdomen pelvis with nothing obviously acute - possible pancreatic duct stone, there is dilatation of the pancreatic duct. MRCP may be helpful for further evaluation. lytic lesion in the right iliac bone measuring 2.8 cm, of uncertain etiology. reported on CT - as per PCP chronic pancreatitis based on CT findings Encephalopathy - due to above - resolved Lines : , (Central Line Necessity Reviewed) [place]valles: OG: Nutrition: Analgesia: Anxiety/ delirium VTE Prophylaxis: Stress Ulcer Prophylaxis: Plans in collaboration with bedside consultants and IM MDs. Discussed with RN to reach out if any questions or concerns Case and care daily discussed on multidisciplinary rounds ( RN, PharmD, Substation Operator Apprentice , Respiratory Therapy, psychotherapist social worker ) A total of 10 minutes of critical care time was devoted to this patient today, required to treat and/or prevent further deterioration of critical care condition ( as above ) . I am remotely monitoring this patient from another state. I am unable to do the bedside exam, and history/physical and pertinent information is taken from other notes in the computer and bedside staff. Sepsis Event Evaluation Height, Weight, BMI Height: '" Weight: lbs. oz. kg; 17.44 BMI Method: Focused Exam Lactate Level 02/04/23 16:45: Lactic Acid Level 8.92*H 02/04/23 19:00: Lactic Acid Level 1.55 Exam Exam Patient acknowledged, consented, and participated in this virtual visit which was conducted using real time audio/video Vital Signs Date Time Temp Pulse Resp B/P (MAP) Pulse Ox O2 Delivery O2 Flow Rate FiO2 02/05/23 09:00 82 18 120/89 (99) 100 Room Air 02/05/23 08:00 83 19 123/90 (101) 100 Room Air 02/05/23 07:30 36.1 02/05/23 07:00 82 02/05/23 07:00 79 18 120/91 (101) 100 Room Air 02/05/23 06:00 83 19 136/97 (110) 100 Room Air 02/05/23 05:00 78 18 103/78 (86) 100 Room Air 02/05/23 04:00 96 Room Air 02/05/23 04:00 82 18 121/93 (102) 100 Room Air 02/05/23 03:00 85 17 139/96 (110) 100 Room Air 02/05/23 02:00 80 15 129/94 (106) 100 Room Air 02/05/23 01:00 81 02/05/23 01:00 82 18 132/98 (109) 100 Room Air 02/05/23 00:00 85 14 119/84 (96) 99 Room Air 02/04/23 23:59 95 Room Air 02/04/23 23:00 79 17 106/80 (89) 99 Room Air 02/04/23 22:30 80 16 127/90 (102) 100 Room Air 02/04/23 22:15 83 15 111/83 (92) 97 Room Air 02/04/23 22:00 79 17 123/101 (108) 99 Room Air 02/04/23 22:00 96 Room Air 02/04/23 21:59 80 02/04/23 21:48 35.8 79 18 119/87 (98) 98 Room Air 02/04/23 21:45 79 17 119/87 (98) 99 Room Air 02/04/23 16:40 36.4 104 16 137/85 (102) 99 Room Air I & O 02/05/23 07:00 Intake Total 6810 ml Output Total 3650 ml Balance 3160 ml Height & Weight Height: '" Weight: lbs. oz. kg; 17.44 BMI Method: General Appearance: No Apparent Distress, Chronically ill, Thin HEENT: PERRL/EOMI, Normal ENT Inspection, Pharynx Normal Neck: Full Range of Motion, Normal Inspection, Non Tender, Supple Respiratory: Chest Non Tender, Lungs Clear, Normal Breath Sounds, No Accessory Muscle Use, No Respiratory Distress Cardiovascular: No Edema, Normal Peripheral Pulses, Tachycardia Capillary Refill: Less Than 3 Seconds Extremity: Normal Capillary Refill, Normal Inspection, Normal Range of Motion, Non Tender, No Calf Tenderness, No Pedal Edema Neurologic/Psychiatric: Alert, Oriented x3, No Motor/Sensory Deficits, Normal Mood/Affect, entry level manufacturing engineer II-XII Norm as Tested, Other (Slow slightly slurred speech) Skin: Normal Color, Warm/Dry Results Lab Laboratory Tests 02/04/23 16:45 02/04/23 22:21 02/05/23 00:37 02/05/23 03:58 02/05/23 08:13 Assessment/Plan Assessment/Plan 1 MICHELLE DAMICO MD February 05, 2023 09:55
[2023-02-05] MEDS: GABAPENTIN 400 MG (NEURONTIN) CAP PO SCH ×2 (11:15→21:04)
--- NOTE | 2023-02-05 12:18 | History & Physical ---
HPI History of Present Illness: 47 yo M with known h/o insulin dependent DM and chronic pancreatitis requiring stenting that presented with seizure like activity and blood sugars >1000. Patient states that he does not know if he missed doses of his insulin but does not think so. He denies feeling sick or ill, no fevers or chills. Decreased appetite for the last few days. Denies N/V. Has some abdominal pain. Denies drinking but does have a long h/o EtOH use. Source: patient Exam Limitations: no limitations Date seen by provider: February 05, 2023 Time Seen by Provider: 09:00 Attending Physician [place] PCP Admitting Physician: Nida Luong MD Attending Physician: Nida Luong MD Consult Date of Admission February 04, 2023 at 21:47 Home Medications Home Medications Reviewed patient Home Medication Reconciliation performed by pharmacy medication reconciliations civil cadd technician and/or nursing. Patients Allergies have been reviewed. Allergies Coded Allergies: No Known Drug Allergies (Unverified , 12/23/22) BMR-Kcodep-Cyjgxa Hx Patient Social History Living Status: Living with family Smoking Status: Current Everyday Smoker Alcohol Use?: Yes Substance type: Marijuana Tobacco type used: Cigarettes Have you traveled recently?: No Immunizations Up To Date Influenza Vaccine Up-to-Date: Yes; Up-to-Date First/Initial COVID19 Vaccinat: 3 SHOTS Second COVID19 Vaccination Jared: Unsure date Third COVID19 Vaccination Date: Unsure date Past Medical History PMHx: Diabetes Neuropathy Pancreatitis SurgHx: Bile duct stent Family Medical History Significant Family History: Diabetes Review of Systems ([facility]) Constitutional: malaise, weakness EENTM: no symptoms reported; No mouth pain, No nose congestion, No throat pain Respiratory: no symptoms reported; No cough, No dyspnea on exertion, No short of breath Cardiovascular: No chest pain; edema; No palpitations Gastrointestinal: abdominal pain; No constipation, No diarrhea; loss of appetite; No nausea, No vomiting Genitourinary: no symptoms reported; No dysuria, No frequency, No hematuria Musculoskeletal: back pain Psychiatric/Neurological: Numbness, Paresthesia Reviewed Test Results Reviewed Test Results Lab Laboratory Tests Test 02/04/23 16:45 02/04/23 17:45 02/04/23 18:23 02/04/23 19:00 Range/Units White Blood Count 4.9 4.3-11.0 10^3/uL Red Blood Count 3.60 L 4.30-5.52 10^6/uL Hemoglobin 11.8 L 13.3-17.7 g/dL Hematocrit 40 40-54 % Mean Corpuscular Volume 111 H 80-99 fL Mean Corpuscular Hemoglobin 33 25-34 pg Mean Corpuscular Hemoglobin Concent 30 L 32-36 g/dL Red Cell Distribution Width 13.7 10.0-14.5 % Platelet Count 234 130-400 10^3/uL Mean Platelet Volume 11.3 9.0-12.2 fL Immature Granulocyte % (Auto) 0 % Neutrophils (%) (Auto) 80 H 42-75 % Lymphocytes (%) (Auto) 11 L 12-44 % Monocytes (%) (Auto) 9 0-12 % Eosinophils (%) (Auto) 0 0-10 % Basophils (%) (Auto) 1 0-10 % Neutrophils # (Auto) 3.9 1.8-7.8 10^3/uL Lymphocytes # (Auto) 0.5 L 1.0-4.0 10^3/uL Monocytes # (Auto) 0.4 0.0-1.0 10^3/uL Eosinophils # (Auto) 0.0 0.0-0.3 10^3/uL Basophils # (Auto) 0.0 0.0-0.1 10^3/uL Immature Granulocyte # (Auto) 0.0 0.0-0.1 10^3/uL Prothrombin Time 13.2 12.2-14.7 SEC INR Comment 1.0 0.8-1.4 Activated Partial Thromboplast Time 29 24-35 SEC Venous Blood pH 7.20 L 7.31-7.41 Venous Blood Partial Pressure CO2 38 L 40-52 MMHG Venous Blood HCO3 15 L 22-28 MMOL/L Sodium Level 113 *L 135-145 MMOL/L Potassium Level 5.1 H 3.6-5.0 MMOL/L Chloride Level 74 L 98-107 MMOL/L Carbon Dioxide Level 14 L 21-32 MMOL/L Anion Gap 25 H 5-14 MMOL/L Blood Urea Nitrogen 15 7-18 MG/DL Creatinine 0.77 0.60-1.30 MG/DL Estimat Glomerular Filtration Rate 111 BUN/Creatinine Ratio 19 Glucose Level 1165 *H 70-105 MG/DL Lactic Acid Level 8.92 *H 1.55 0.50-2.00 MMOL/L Calcium Level 9.1 8.5-10.1 MG/DL Corrected Calcium 9.0 8.5-10.1 MG/DL Magnesium Level 2.5 H 1.6-2.4 MG/DL Total Bilirubin 0.4 0.1-1.0 MG/DL Aspartate Amino Transf (AST/SGOT) 319 H 5-34 U/L Alanine Aminotransferase (ALT/SGPT) 249 H 0-55 U/L Alkaline Phosphatase 806 H 40-136 U/L Troponin I < 0.30 <0.30 NG/ML Total Protein 6.6 6.4-8.2 GM/DL Albumin 4.1 3.2-4.5 GM/DL Lipase 16 8-78 U/L Serum Alcohol < 10 <10 MG/DL Urine Color PALE YELLOW Urine Clarity CLEAR Urine pH 5.5 5-9 Urine Specific Boring <=1.005 1.016-1.022 Urine Protein NEGATIVE NEGATIVE Urine Glucose (UA) 3+ H NEGATIVE Urine Ketones TRACE H NEGATIVE Urine Nitrite NEGATIVE NEGATIVE Urine Bilirubin NEGATIVE NEGATIVE Urine Urobilinogen 0.2 < = 1.0 MG/DL Urine Leukocyte Esterase NEGATIVE NEGATIVE Urine RBC (Auto) NEGATIVE NEGATIVE Urine RBC NONE /HPF Urine WBC 0-2 /HPF Urine Squamous Epithelial Cells RARE /HPF Urine Crystals NONE /LPF Urine Bacteria NEGATIVE /HPF Urine Casts NONE /LPF Urine Mucus NEGATIVE /LPF Urine Culture Indicated NO Urine Opiates Screen NEGATIVE NEGATIVE Urine Oxycodone Screen NEGATIVE NEGATIVE Urine Methadone Screen NEGATIVE NEGATIVE Urine Propoxyphene Screen NEGATIVE NEGATIVE Urine Barbiturates Screen NEGATIVE NEGATIVE Ur Tricyclic Antidepressants Screen NEGATIVE NEGATIVE Urine Phencyclidine Screen NEGATIVE NEGATIVE Urine Amphetamines Screen NEGATIVE NEGATIVE Urine Methamphetamines Screen NEGATIVE NEGATIVE Urine Benzodiazepines Screen NEGATIVE NEGATIVE Urine Cocaine Screen NEGATIVE NEGATIVE Urine Cannabinoids Screen POSITIVE H NEGATIVE Glucometer > 600 *H 70-110 MG/DL Test 02/04/23 20:54 02/04/23 21:56 02/04/23 22:21 02/05/23 00:26 Range/Units Venous Blood pH 7.41 7.31-7.41 Venous Blood Partial Pressure CO2 43 40-52 MMHG Venous Blood HCO3 27 22-28 MMOL/L Glucometer > 600 *H 489 *H 70-110 MG/DL Sodium Level 131 L 135-145 MMOL/L Potassium Level 3.7 3.6-5.0 MMOL/L Chloride Level 98 98-107 MMOL/L Carbon Dioxide Level 21 21-32 MMOL/L Anion Gap 12 5-14 MMOL/L Blood Urea Nitrogen 10 7-18 MG/DL Creatinine 1.17 0.60-1.30 MG/DL Estimat Glomerular Filtration Rate 77 BUN/Creatinine Ratio 9 Glucose Level 766 *H 70-105 MG/DL Calcium Level 8.6 8.5-10.1 MG/DL Test 02/05/23 00:37 02/05/23 01:35 02/05/23 02:31 02/05/23 03:33 Range/Units Sodium Level 135 135-145 MMOL/L Potassium Level 3.8 3.6-5.0 MMOL/L Chloride Level 103 98-107 MMOL/L Carbon Dioxide Level 23 21-32 MMOL/L Anion Gap 9 5-14 MMOL/L Blood Urea Nitrogen 9 7-18 MG/DL Creatinine 0.95 0.60-1.30 MG/DL Estimat Glomerular Filtration Rate 99 BUN/Creatinine Ratio 9 Glucose Level 522 *H 70-105 MG/DL Calcium Level 9.2 8.5-10.1 MG/DL Glucometer 387 H 429 *H 432 *H 70-110 MG/DL Test 02/05/23 03:58 02/05/23 04:51 02/05/23 05:50 02/05/23 06:38 Range/Units White Blood Count 8.8 4.3-11.0 10^3/uL Red Blood Count 3.51 L 4.30-5.52 10^6/uL Hemoglobin 11.7 L 13.3-17.7 g/dL Hematocrit 32 L 40-54 % Mean Corpuscular Volume 91 80-99 fL Mean Corpuscular Hemoglobin 33 25-34 pg Mean Corpuscular Hemoglobin Concent 37 H 32-36 g/dL Red Cell Distribution Width 11.8 10.0-14.5 % Platelet Count 208 130-400 10^3/uL Mean Platelet Volume 11.0 9.0-12.2 fL Immature Granulocyte % (Auto) 1 % Neutrophils (%) (Auto) 73 42-75 % Lymphocytes (%) (Auto) 15 12-44 % Monocytes (%) (Auto) 10 0-12 % Eosinophils (%) (Auto) 1 0-10 % Basophils (%) (Auto) 1 0-10 % Neutrophils # (Auto) 6.4 1.8-7.8 10^3/uL Lymphocytes # (Auto) 1.3 1.0-4.0 10^3/uL Monocytes # (Auto) 0.9 0.0-1.0 10^3/uL Eosinophils # (Auto) 0.1 0.0-0.3 10^3/uL Basophils # (Auto) 0.0 0.0-0.1 10^3/uL Immature Granulocyte # (Auto) 0.0 0.0-0.1 10^3/uL Sodium Level 133 L 135-145 MMOL/L Potassium Level 3.8 3.6-5.0 MMOL/L Chloride Level 103 98-107 MMOL/L Carbon Dioxide Level 20 L 21-32 MMOL/L Anion Gap 10 5-14 MMOL/L Blood Urea Nitrogen 7 7-18 MG/DL Creatinine 0.82 0.60-1.30 MG/DL Estimat Glomerular Filtration Rate 109 BUN/Creatinine Ratio 9 Glucose Level 412 *H 70-105 MG/DL Calcium Level 8.4 L 8.5-10.1 MG/DL Corrected Calcium 8.9 8.5-10.1 MG/DL Phosphorus Level 2.5 2.3-4.7 MG/DL Magnesium Level 2.1 1.6-2.4 MG/DL Total Bilirubin 0.4 0.1-1.0 MG/DL Aspartate Amino Transf (AST/SGOT) 238 H 5-34 U/L Alanine Aminotransferase (ALT/SGPT) 211 H 0-55 U/L Alkaline Phosphatase 563 H 40-136 U/L Total Protein 6.0 L 6.4-8.2 GM/DL Albumin 3.4 3.2-4.5 GM/DL Glucometer 378 H 366 H 288 H 70-110 MG/DL Test 02/05/23 07:27 02/05/23 08:13 02/05/23 10:05 02/05/23 11:05 Range/Units Glucometer 280 H 275 H 278 H 70-110 MG/DL Sodium Level 134 L 135-145 MMOL/L Potassium Level 4.3 3.6-5.0 MMOL/L Chloride Level 102 98-107 MMOL/L Carbon Dioxide Level 25 21-32 MMOL/L Anion Gap 7 5-14 MMOL/L Blood Urea Nitrogen 7 7-18 MG/DL Creatinine 0.74 0.60-1.30 MG/DL Estimat Glomerular Filtration Rate 112 BUN/Creatinine Ratio 9 Glucose Level 244 H 70-105 MG/DL Calcium Level 8.3 L 8.5-10.1 MG/DL Physical Exam-([facility]C) Physical Exam Vital Signs VS - Last 72 Hours, by Label 02/04/23 02/04/23 02/04/23 02/04/23 16:40 21:45 21:48 21:59 Temp 36.4 35.8 Pulse 104 79 79 80 Resp 16 17 18 B/P (MAP) 137/85 (102) 119/87 (98) 119/87 (98) Pulse Ox 99 99 98 O2 Delivery Room Air Room Air Room Air 02/04/23 02/04/23 02/04/23 02/04/23 22:00 22:00 22:15 22:30 Pulse 79 83 80 Resp 17 15 16 B/P (MAP) 123/101 (108) 111/83 (92) 127/90 (102) Pulse Ox 96 99 97 100 O2 Delivery Room Air Room Air Room Air Room Air 02/04/23 02/04/23 02/05/23 02/05/23 23:00 23:59 00:00 01:00 Pulse 79 85 82 Resp 17 14 18 B/P (MAP) 106/80 (89) 119/84 (96) 132/98 (109) Pulse Ox 99 95 99 100 O2 Delivery Room Air Room Air Room Air Room Air 02/05/23 02/05/23 02/05/23 02/05/23 01:00 02:00 03:00 04:00 Pulse 81 80 85 82 Resp 15 17 18 B/P (MAP) 129/94 (106) 139/96 (110) 121/93 (102) Pulse Ox 100 100 100 O2 Delivery Room Air Room Air Room Air 02/05/23 02/05/23 02/05/23 02/05/23 04:00 05:00 06:00 07:00 Pulse 78 83 79 Resp 18 19 18 B/P (MAP) 103/78 (86) 136/97 (110) 120/91 (101) Pulse Ox 96 100 100 100 O2 Delivery Room Air Room Air Room Air Room Air 02/05/23 02/05/23 02/05/2311/23 07:00 07:30 08:00 09:00 Temp 36.1 Pulse 82 83 82 Resp 19 18 B/P (MAP) 123/90 (101) 120/89 (99) Pulse Ox 100 100 O2 Delivery Room Air Room Air 02/05/23 02/05/23 10:00 11:00 Pulse 87 86 Resp 18 15 B/P (MAP) 139/100 (113) 139/103 (115) Pulse Ox 100 100 O2 Delivery Room Air Room Air Capillary Refill : Less Than 3 Seconds General Appearance: WD/WN, no apparent distress, thin HEENT: PERRL/EOMI Neck: non-tender, full range of motion, supple Respiratory: chest non-tender, lungs clear, normal breath sounds, no respiratory distress, no accessory muscle use Cardiovascular: normal peripheral pulses, regular rate, rhythm, no murmur Gastrointestinal: soft, tenderness (mild epigastric ttp, no distention or rebound ttp) Extremities: normal range of motion, non-tender, no calf tenderness, normal capillary refill, pedal edema (2+ pitting edema bilaterally) Neurologic/Psychiatric: alert, oriented x 3 Skin: normal color, warm/dry Lymphatic: no adenopathy Assessment/Plan Assessment/Plan Admission Status: Inpatient Order (span 2 midnights) Reason for Inpatient Admission: Requiring frequent vitals and lab evaluation, critically ill (1) DKA (diabetic ketoacidosis) Status: Resolved Assessment & Plan: - Patient admitted to ICU, insulin gtts, will transition to subcutaneous insulin now that acidosis is resolved and gap closed, ADA diet, may transfer to 4th floor after transition Qualifiers: Qualified Codes: E10.10 - Type 1 diabetes mellitus with ketoacidosis without coma (2) Metabolic encephalopathy Status: Resolved (3) Seizure Status: Acute Assessment & Plan: - Sz precautions (4) Lytic bone lesion of hip Status: Acute Assessment & Plan: - Will need outpatient f.u (5) History of heavy alcohol consumption Status: Chronic (6) Elevated liver enzymes Status: Acute (7) History of pancreatitis Status: Chronic Assessment & Plan: - CT with dilated pancreatic duct, recommend MRCP (8) DVT prophylaxis Status: Acute Assessment & Plan: - NIDA Cruz MD February 05, 2023 12:18
[2023-02-05] MEDS: inSUlin ASPART (NovoLOG) 1 UNIT/0.01 ML (CHARGE PER UNIT) SC SCH ×3 (13:06→21:05)
[2023-02-05 19:10] VITALS: BP 123/81
[2023-02-05] MEDS: morphine INJ 4 MG/ML 1 ML (VIAL/SYRINGE) IVP PRN (21:32)
[2023-02-05 23:28] VITALS: BP 122/85
[2023-02-06] MEDS: morphine INJ 4 MG/ML 1 ML (VIAL/SYRINGE) IVP PRN ×2 (00:36→08:33)
[2023-02-06 04:13] VITALS: BP 108/69
[2023-02-06 05:54] LABS: BASOPHILS % (AUTO) 0 % (0-10); EOSINOPHILS # (AUTO) 0.1 10^3/uL (0.0-0.3); EOSINOPHILS % (AUTO) 2 % (0-10); HEMATOCRIT 36 % (40-54); HEMOGLOBIN 13.1 g/dL (13.3-17.7); LYMPHOCYTES # (AUTO) 2.1 10^3/uL (1.0-4.0); LYMPHOCYTES % (AUTO) 28 % (12-44); MEAN CORPUSCULAR HEMOGLOBIN 33 pg (25-34); MEAN CORPUSCULAR HGB CONC 36 g/dL (32-36); MEAN CORPUSCULAR VOLUME 92 fL (80-99); MEAN PLATELET VOLUME 10.5 fL (9.0-12.2); MONOCYTES # (AUTO) 0.6 10^3/uL (0.0-1.0); MONOCYTES % (AUTO) 8 % (0-12); NEUTROPHILS # (AUTO) 4.5 10^3/uL (1.8-7.8); NEUTROPHILS % (AUTO) 61 % (42-75); PLATELET COUNT 215 10^3/uL (130-400); WHITE BLOOD COUNT 7.4 10^3/uL (4.3-11.0)
[2023-02-06 06:07] LABS: ALBUMIN 3.6 GM/DL (3.2-4.5); POTASSIUM 4.3 MMOL/L (3.6-5.0)
[2023-02-06 06:08] LABS: CALCIUM 8.9 MG/DL (8.5-10.1)
[2023-02-06 06:09] LABS: TOTAL PROTEIN 6.5 GM/DL (6.4-8.2)
[2023-02-06 06:11] LABS: BILIRUBIN,TOTAL 0.4 MG/DL (0.1-1.0)
[2023-02-06 06:13] LABS: CREATININE SERUM 0.73 MG/DL (0.60-1.30)
[2023-02-06] MEDS: inSUlin ASPART (NovoLOG) 1 UNIT/0.01 ML (CHARGE PER UNIT) SC SCH ×2 (06:16→11:40)
[2023-02-06 08:00] VITALS: BP 121/80
[2023-02-06] MEDS: GABAPENTIN 400 MG (NEURONTIN) CAP PO SCH (08:31)
[2023-02-06] MEDS ORDERED: SERTRALINE 100 MG (ZOLOFT) TAB PO SCH (09:00)
[2023-02-06] MEDS ORDERED: ROSUVASTATIN 20 MG (CRESTOR) TABLET PO SCH (09:00)
[2023-02-06 11:54] VITALS: BP 135/87
[2023-02-06] MEDS ORDERED: FURO-125 PO (12:40)
[2023-02-06] MEDS ORDERED: GABA800T10 PO (12:40)
[2023-02-06] MEDS ORDERED: ROSU20TA32 PO (12:40)
--- NOTE | 2023-02-06 12:41 | Discharge Summary ---
Discharge Summary Hospital Course Was the Problem List Reviewed?: Yes Problems/Dx: (1) DKA (diabetic ketoacidosis) Status: Resolved Qualifiers: Qualified Codes: E10.10 - Type 1 diabetes mellitus with ketoacidosis without coma (2) Diarrhea Status: Chronic (3) History of pancreatitis Status: Chronic (4) Elevated liver enzymes Status: Acute (5) History of heavy alcohol consumption Status: Chronic (6) High risk social situation Status: Chronic (7) Neuropathy Status: Chronic Hospital Course Date of Admission: February 04, 2023 at 21:47 Admission Diagnosis : Family Physician/Provider: [facility] Date of Discharge: 02/06/23 Discharge Diagnosis: [ ] Hospital Course: Lengthy course after he was admitted for DKA and acute on chronic pancreatitis with h/o pancreatic stents. Insulin drip resolved acidosis. Overall he remained stable and was ready for DC. Labs and Pending Lab Test: Laboratory Tests 02/05/23 15:57: Glucometer 209H 02/05/23 20:53: Glucometer 222H 02/06/23 05:47: White Blood Count 7.4, Red Blood Count 3.95L, Hemoglobin 13.1L, Hematocrit 36L, Mean Corpuscular Volume 92, Mean Corpuscular Hemoglobin 33, Mean Corpuscular Hemoglobin Concent 36, Red Cell Distribution Width 12.1, Platelet Count 215, Mean Platelet Volume 10.5, Immature Granulocyte % (Auto) 0, Neutrophils (%) (Auto) 61, Lymphocytes (%) (Auto) 28, Monocytes (%) (Auto) 8, Eosinophils (%) (Auto) 2, Basophils (%) (Auto) 0, Neutrophils # (Auto) 4.5, Lymphocytes # (Auto) 2.1, Monocytes # (Auto) 0.6, Eosinophils # (Auto) 0.1, Basophils # (Auto) 0.0, I mmature Granulocyte # (Auto) 0.0, Sodium Level 131L, Potassium Level 4.3, Chloride Level 96L, Carbon Dioxide Level 23, Anion Gap 12, Blood Urea Nitrogen 11, Creatinine 0.73, Estimat Glomerular Filtration Rate 113, BUN/Creatinine Ratio 15, Glucose Level 134H, Calcium Level 8.9, Corrected Calcium 9.2, Total Bilirubin 0.4, Aspartate Amino Transf (AST/SGOT) 242H, Alanine Aminotransferase (ALT/SGPT) 181H, Alkaline Phosphatase 572H, Total Protein 6.5, Albumin 3.6 02/06/23 06:15: Glucometer 176H 02/06/23 10:51: Glucometer 392H Microbiology 02/04/23 MRSA Screen - Final, Complete MRSA not isolated Home Meds Active Lasix (Furosemide) 20 Mg Tablet 20 Mg PO Q48H Rosuvastatin Calcium 20 Mg Tablet 20 Mg PO DAILY Gabapentin 800 Mg Tablet 800 Mg PO TID Reported Hydrochlorothiazide 12.5 Mg Tablet 12.5 Mg PO DAILY Sertraline HCl 100 Mg Tablet 100 Mg PO DAILY Humalog Kwikpen (Insulin Lispro) 100 Unit/Ml Insuln.pen Unit SQ AC USES PER SLIDING SCALE: 150-199=2 UNITS 200-249=4 UNITS 250-299=6 UNITS 300-349=8 UNITS 350-399=10 UNITS 400 AND ABOVE=12 UNITS Lantus Solostar (Insulin Glargine,Hum.rec.anlog) 100 Unit/Ml (3 Ml) Insuln.pen 25 Unit SQ BID Assessment/Pt Instructions PCP 1 week Discharge Planning: <30 minutes discharge planning Discharge Instructions Discharge Diet: ADA Diet Discharge Physical Examination Vital Signs Vital Signs Date Time Temp Pulse Resp B/P (MAP) Pulse Ox O2 Delivery O2 Flow Rate FiO2 02/06/23 11:54 36.5 81 18 135/87 (103) 98 Room Air General Appearance: No Apparent Distress, WD/WN Allergies: Coded Allergies: No Known Drug Allergies (Unverified , 12/23/22) Discharge Summary Date of Admission February 04, 2023 at 21:47 Date of Discharge Discharge Date: February 06, 2023 CINDY GALLEGO DO February 06, 2023 12:41
[2023-02-06 15:21] VITALS: BP 135/87
== END 2023-02-06 14:45 | disposition home or self-care (01) | DRG 637 ==
LOC: EDUNIT# 16:36 → ER FS 16:37 → ICU 21:47 → 4TH 02-05 15:31
PROVIDERS: ADMIT Family Medicine; ATTEND Family Medicine
DX: E10.10 Type 1 diabetes mellitus with ketoacidosis without coma (principal); G93.41 Metabolic encephalopathy; K85.90 Acute pancreatitis without necrosis or infection, unspecified; K86.1 Other chronic pancreatitis; G40.909 Epilepsy, unspecified, not intractable, without status epilepticus; I10 Essential (primary) hypertension; Z79.4 Long term (current) use of insulin; E78.5 Hyperlipidemia, unspecified; E10.40 Type 1 diabetes mellitus with diabetic neuropathy, unspecified; M89.9 Disorder of bone, unspecified; F17.210 Nicotine dependence, cigarettes, uncomplicated
CPT/HCPCS: 36415; 51702; 70450; 71045; 74177; 80048; 80053; 80306; 80320; 81000; 82010; 82805; 82947; 83605; 83690; 83735; 84100; 84484; 85025; 85610; 85730; 87081; 93005; 93041

== ENCOUNTER 2023-02-16 21:31 | Inpatient (IN) | payer OTHER ==
[~2023-02-16] VITALS: Ht 195.5 cm; Wt 75.8 kg
[~2023-02-16 21:31] MED LIST changes: +FURO-125 PO
[2023-02-16] MEDS ORDERED: inSUlin (REGULAR) HUMAN 1 UNIT/0.01 ML (CHARGE PER UNIT) IV STA (21:40)
--- NOTE | 2023-02-16 21:43 | ED General ---
General Stated Complaint: INTOXICATED,HIGH BLOOD SUGAR Source of Information: Patient, EMS, Old Records (admit for DKA February 04 to [facility] service in [place] with Dr. Luong and Dr. Gallego for hospitalist service with [facility]) History of Present Illness Date Seen by Provider: February 16, 2023 Time Seen by Provider: 21:31 Initial Comments 47-year-old male presenting with complaints of alcohol intoxication and elevated blood sugar. EMS transported him to the emergency department with these complaints. He states that he is not had anything to eat today and has been drinking. He does not know how much he drank. He has not taken any insulin since yesterday. He denies having any problems and states that he did not want to come to the emergency department. EMS reported that he was at a family member's house and that they were unable to get him out of the yard and inside the house so they had called EMS. He was recently admitted February 04 to [facility] in [place] for DKA and alcohol abuse. He required insulin drip and IV fluids. Modifying Factors: worse with Other (Alcohol intoxication is made his diabetes and symptoms today worse.) Associated Systoms: No Chest Pain, No Cough, No Diaphoresis, No Fever/Chills, No Headaches, No Loss of Appetite, No Malaise, No Nausea/Vomiting, No Rash, No Seizure, No Shortness of Air, No Syncope, No Weakness Allergies and Home Medications Allergies Coded Allergies: No Known Drug Allergies (Unverified , 12/23/22) Patient Home Medication List Home Medication List Reviewed: Yes Furosemide (Lasix) 20 Mg Tablet, 20 MG PO Q48H Prescribed by: CINDY GALLEGO on 02/06/23 1240 Gabapentin (Gabapentin) 800 Mg Tablet, 800 MG PO TID Prescribed by: CINDY GALLEGO on 02/06/23 1240 Hydrochlorothiazide (Hydrochlorothiazide) 12.5 Mg Tablet, 12.5 MG PO DAILY, (Reported) Entered as Reported by: STONEY LEE on 12/24/22 110 Insulin Glargine,Hum.rec.anlog (Lantus Solostar) 100 Unit/Ml (3 Ml) Insuln.pen, 25 UNIT SQ BID, (Reported) Entered as Reported by: STONEY LEE on 12/24/22 1101 Insulin Lispro (Humalog Kwikpen) 100 Unit/Ml Insuln.pen, UNIT SQ AC, (Reported) Entered as Reported by: STONEY LEE on 12/24/22 1101 Rosuvastatin Calcium (Rosuvastatin Calcium) 20 Mg Tablet, 20 MG PO DAILY Prescribed by: CINDY GALLEGO on 02/06/23 1240 Sertraline HCl (Sertraline HCl) 100 Mg Tablet, 100 MG PO DAILY, (Reported) Entered as Reported by: STONEY LEE on 12/24/22 1101 Review of Systems Review of Systems Constitutional: No chills, No fever EENTM: no symptoms reported Respiratory: no symptoms reported Cardiovascular: no symptoms reported Gastrointestinal: no symptoms reported Genitourinary: no symptoms reported Musculoskeletal: no symptoms reported Skin: no symptoms reported Psychiatric/Neurological: No Symptoms Reported Past Ayldfge-Lzyheh-Cuzqdg Hx Patient Social History Alcohol Use?: Yes Immunizations Up To Date First/Initial COVID19 Vaccinat: 3 SHOTS Second COVID19 Vaccination Jared: Unsure date Third COVID19 Vaccination Date: Unsure date Past Medical History Surgery/Hospitalization HX: Hypertension, pancreatitis, SEIZURES, DIABETES NEUROPATHY Family Medical History Diabetes Physical Exam Vital Signs Vital Signs - First Documented 02/16/23 21:32 Temp 36.7 Pulse 88 Resp 26 B/P (MAP) 111/57 (75) Pulse Ox 96 O2 Delivery Room Air Capillary Refill : Height, Weight, BMI Height: '" Weight: lbs. oz. kg; 17.44 BMI Method: General Appearance: No Apparent Distress, Chronically ill, Thin HEENT: PERRL/EOMI, Pharynx Normal Neck: Full Range of Motion, Normal Inspection, Non Tender, Supple Respiratory: Chest Non Tender, Lungs Clear, Normal Breath Sounds, No Accessory Muscle Use, No Respiratory Distress Cardiovascular: Regular Rate, Rhythm, Normal Peripheral Pulses Gastrointestinal: Normal Bowel Sounds, No Pulsatile Mass, Non Tender, Soft Extremity: Normal Capillary Refill, No Calf Tenderness, Pedal Edema (1+ pitting edema to bilateral lower extremities) Neurologic/Psychiatric: Alert, Oriented x3 Skin: Warm/Dry Progress/Results/Core Measures Suspected Sepsis SIRS Temperature: Pulse: Respiratory Rate: Laboratory Tests 02/16/23 21:44: White Blood Count 4.8 Blood Pressure / Mean: Laboratory Tests 02/16/23 21:44: Creatinine 0.57L, Platelet Count 246, Total Bilirubin 0.4 Results/Orders Lab Results Laboratory Tests Test 02/16/23 21:44 02/16/23 22:44 Range/Units White Blood Count 4.8 4.3-11.0 10^3/uL Red Blood Count 3.23 L 4.30-5.52 10^6/uL Hemoglobin 10.4 L 13.3-17.7 g/dL Hematocrit 33 L 40-54 % Mean Corpuscular Volume 103 H 80-99 fL Mean Corpuscular Hemoglobin 32 25-34 pg Mean Corpuscular Hemoglobin Concent 31 L 32-36 g/dL Red Cell Distribution Width 13.3 10.0-14.5 % Platelet Count 246 130-400 10^3/uL Mean Platelet Volume 10.7 9.0-12.2 fL Immature Granulocyte % (Auto) 0 % Neutrophils (%) (Auto) 76 H 42-75 % Lymphocytes (%) (Auto) 14 12-44 % Monocytes (%) (Auto) 9 0-12 % Eosinophils (%) (Auto) 0 0-10 % Basophils (%) (Auto) 1 0-10 % Neutrophils # (Auto) 3.7 1.8-7.8 10^3/uL Lymphocytes # (Auto) 0.7 L 1.0-4.0 10^3/uL Monocytes # (Auto) 0.4 0.0-1.0 10^3/uL Eosinophils # (Auto) 0.0 0.0-0.3 10^3/uL Basophils # (Auto) 0.0 0.0-0.1 10^3/uL Immature Granulocyte # (Auto) 0.0 0.0-0.1 10^3/uL Venous Blood pH 7.28 L 7.31-7.41 Venous Blood Partial Pressure CO2 39 L 40-52 MMHG Venous Blood HCO3 18 L 22-28 MMOL/L Sodium Level 112 *L 135-145 MMOL/L Potassium Level 4.5 3.6-5.0 MMOL/L Chloride Level 73 L 98-107 MMOL/L Carbon Dioxide Level 16 L 21-32 MMOL/L Anion Gap 23 H 5-14 MMOL/L Blood Urea Nitrogen 16 7-18 MG/DL Creatinine 0.57 L 0.60-1.30 MG/DL Estimat Glomerular Filtration Rate 122 BUN/Creatinine Ratio 28 Glucose Level 1464 *H 70-105 MG/DL Calcium Level 8.9 8.5-10.1 MG/DL Corrected Calcium 9.0 8.5-10.1 MG/DL Total Bilirubin 0.4 0.1-1.0 MG/DL Aspartate Amino Transf (AST/SGOT) 788 H 5-34 U/L Alanine Aminotransferase (ALT/SGPT) 565 H 0-55 U/L Alkaline Phosphatase 1016 H 40-136 U/L Total Protein 6.4 6.4-8.2 GM/DL Albumin 3.9 3.2-4.5 GM/DL Lipase 14 8-78 U/L Salicylates Level < 0.3 L 5.0-20.0 MG/DL Acetaminophen Level < 10 L 10-30 UG/ML Serum Alcohol 203 H <10 MG/DL Urine Color PALE YELLOW Urine Clarity CLEAR Urine pH 6.0 5-9 Urine Specific [place] <=1.005 1.016-1.022 Urine Protein NEGATIVE NEGATIVE Urine Glucose (UA) 3+ H NEGATIVE Urine Ketones NEGATIVE NEGATIVE Urine Nitrite NEGATIVE NEGATIVE Urine Bilirubin NEGATIVE NEGATIVE Urine Urobilinogen 0.2 < = 1.0 MG/DL Urine Leukocyte Esterase NEGATIVE NEGATIVE Urine RBC (Auto) TRACE-I H NEGATIVE Urine RBC NONE /HPF Urine WBC RARE /HPF Urine Squamous Epithelial Cells NONE /HPF Urine Crystals NONE /LPF Urine Bacteria NEGATIVE /HPF Urine Casts NONE /LPF Urine Mucus NEGATIVE /LPF Urine Yeast MODERATE H /HPF Urine Culture Indicated YES Urine Opiates Screen NEGATIVE NEGATIVE Urine Oxycodone Screen NEGATIVE NEGATIVE Urine Methadone Screen NEGATIVE NEGATIVE Urine Propoxyphene Screen NEGATIVE NEGATIVE Urine Barbiturates Screen NEGATIVE NEGATIVE Ur Tricyclic Antidepressants Screen NEGATIVE NEGATIVE Urine Phencyclidine Screen NEGATIVE NEGATIVE Urine Amphetamines Screen NEGATIVE NEGATIVE Urine Methamphetamines Screen NEGATIVE NEGATIVE Urine Benzodiazepines Screen NEGATIVE NEGATIVE Urine Cocaine Screen NEGATIVE NEGATIVE Urine Cannabinoids Screen POSITIVE H NEGATIVE My Orders Orders - ERICA ESPINO MD Ua Culture If Indicated (02/16/23 21:37) Cbc With Automated Diff (02/16/23 21:37) Comprehensive Metabolic Panel (02/16/23 21:37) Alcohol (02/16/23 21:37) Drug Screen Stat (Urine) (02/16/23 21:37) Acetaminophen (02/16/23 21:37) Salicylate (02/16/23 21:37) Ekg Tracing (02/16/23 21:37) Ed Iv/Invasive Line Start (02/16/23 21:37) Monitor-Rhythm Ecg Trace Only (02/16/23 21:37) Ns Iv 1000 Ml (Sodium Chloride 0.9%) (02/16/23 21:45) Accucheck Stat ONCE (02/16/23 21:37) Venous Blood Gas (02/16/23 21:37) Insulin (Regular) Human (Novolin R (Per (02/16/23 21:40) Insulin Regular Drip (Myxredlin 100 Unit (02/16/23 22:32) Ed Admission (Communication) (02/16/23 22:37) Ns Iv 1000 Ml (Sodium Chloride 0.9%) (02/16/23 22:38) Lipase (02/16/23 22:42) Urine Culture (02/16/23 22:44) Vital Signs/I&O 02/16/23 02/16/23 21:32 23:17 Temp 36.7 Pulse 88 82 Resp 26 17 B/P (MAP) 111/57 (75) 118/77 Pulse Ox 96 98 O2 Delivery Room Air Room Air Capillary Refill : Progress Note #1: Progress Note Potential diagnosis of alcohol intoxication, recurrent DKA, polysubstance abuse, dehydration, renal failure, hepatic failure. Continue with IV fluids normal saline 1 L bolus. EMS established peripheral IV access prior to arrival and have fluids infusing. Accu-Chek was reading high for his blood sugar so we will send labs to look at complete blood count, comprehensive metabolic profile, venous blood gas, magnesium, alcohol level, acetaminophen level, salicylate level, urinalysis, urine drug screen. Administer regular insulin 10 units IV to try and help with his glucose reading high on the Accu-Chek. Electrocardiogram and cardiac front desk monitor to assess his heart rate and rhythm. My initial interpretation of the cardiac telemetry monitoring shows normal sinus rhythm with a heart rate in the 80s. Progress Note #2: Time: 22:14 Progress Note Venous blood gas shows he is acidotic with a pH of 7.28 and PCO2 of 39. His complete blood count did not have an elevated white blood cell count as it was 4.8. He does have anemia with a hemoglobin of 10.4. His platelets are normal at 246. Progress Note #3: Time: 22:40 Progress Note The lab called with critical values on his comprehensive metabolic profile. He had a sodium of 112, potassium 4.5, chloride 73, CO2 of 16, glucose of 1464. He had a normal creatinine of 0.57. His alcohol level was elevated to 203. His AST was elevated to 788, ALT up to 565, alkaline phosphatase 1016. Patient was updated about lab results and findings and recommended to admit to [place] on an insulin drip. He was asking why he could not just go back home to where his family is. I advised him that if we did not treat his elevated glucose that he could have his organ shutdown and . He acted frustrated but said that he initially wanted to talk to his family. I told him if he had his cell phone and wanted to use that he could use the phone to call his family. However I then asked him if if he would be willing to be admitted to [place] so I could start the insulin drip and medicines to help him. At that point he threw his phone down on the bed and said "lets just get to [place] because if you keep asking me all these fucking questions I'm gonna get frustrated and just walk out, so lets just go" D/w Dr. Finnegan boat person hospitalist for [facility]. I reviewed the patient's presentation as well as his vital signs and abnormal labs showing a mildly elevated glucose of 1464. He was acidotic with a pH of 7.28. He also has alcohol intoxication with a alcohol level of 203. His LFTs are elevated as well. He has already received 2 L of normal saline IV fluid bolus and was getting started on an insulin drip. She accepted him for admit and requested bridge orders be placed. Will use the DKA order set and admit to the ICU at [facility]. 2255 I called and updated the doctor through the eICU about the patient being admitted to ICU 10 in [place]. Unclear how much of this is from his alcohol versus DKA versus hyperosmolar hyperglycemia. He responded well to DKA protocol treatment on February 04 admit so will proceed with DKA order set. Progress Note #4: Time: 23:09 Progress Note Urine drug screen was positive for marijuana. His urinalysis was very dilute with specific gravity less than 1.005. He had 3+ glucose and large amount of yeast present on the urinalysis. He had no nitrites, leukocyte esterase, white blood cells. ECG Initial ECG Impression Date: February 16, 2023 Initial ECG Impression Time: 22:04 Initial ECG Rate: 87 Initial ECG Rhythm: Normal Sinus Initial ECG Comparisson: Unchanged (02/04/2023) Comment My personal interpretation and review of his electrocardiogram he has sinus rhythm with a heart rate of 87 bpm and a first-degree AV block with a MT interval of 219 ms. He has no acute ST elevation. He has findings for LVH with early repolarization changes. QT interval 404 ms with a QTc interval 448 ms. Overall appears similar to prior tracing from February 04, 2023. Critical Care Note Critical Care Total Time (minutes) 45 minutes Progress I spent at least 45 minutes of critical care time with the patient. Time excludes separately billable procedures. Time was spent obtaining history from patient, recent admission in November and January, ordering tests and reviewing results, ordering interventions and reviewing response, discussion with consultants, discussion with the patient, documentation in the chart. Patient was at risk of neurologic and cardiovascular compromise and collapse with his elevated glucose and elevated liver enzymes. He required my direct and immediate intervention and treatment and monitoring for his condition and to try and start treating for his hyperglycemia. Departure Communication (Admissions) Time/Spoke to Admitting Phy: 22:40 D/w Dr. Finnegan boat person hospitalist for [facility]. I reviewed the patient's pr esentation as well as his vital signs and abnormal labs showing a mildly elevated glucose of 1464. He was acidotic with a pH of 7.28. He also has alcohol intoxication with a alcohol level of 203. His LFTs are elevated as well. He has already received 2 L of normal saline IV fluid bolus and was getting started on an insulin drip. Will use the DKA order set and admit to the ICU at [facility]. 2256 I called and updated the doctor through the eICU about the patient being admitted to ICU 10 in [place]. Impression Primary Impression: DKA (diabetic ketoacidosis) Qualified Codes: E10.10 - Type 1 diabetes mellitus with ketoacidosis without coma Additional Impression: Acute alcohol intoxication Qualified Codes: F10.920 - Alcohol use, unspecified with intoxication, u ncomplicated Disposition: 30 STILL A PATIENT Condition: Critical Admissions Decision to Admit Reason: Admit from ER (General) Decision to Admit/Date: February 16, 2023 Time/Decision to Admit Time: 22:40 Departure-Patient Inst. Referrals: [facility] (PCP/Family) Primary Care Physician ERICA ESPINO MD February 16, 2023 21:43
[2023-02-16] MEDS ORDERED: NS IV 1000 ML 1,000 ML IV SCH (21:45)
[2023-02-16 21:48] LABS: BASOPHILS % (AUTO) 1 % (0-10); EOSINOPHILS % (AUTO) 0 % (0-10); HEMATOCRIT 33 % (40-54); HEMOGLOBIN 10.4 g/dL (13.3-17.7); LYMPHOCYTES # (AUTO) 0.7 10^3/uL (1.0-4.0); LYMPHOCYTES % (AUTO) 14 % (12-44); MEAN CORPUSCULAR HEMOGLOBIN 32 pg (25-34); MEAN CORPUSCULAR HGB CONC 31 g/dL (32-36); MEAN CORPUSCULAR VOLUME 103 fL (80-99); MEAN PLATELET VOLUME 10.7 fL (9.0-12.2); MONOCYTES # (AUTO) 0.4 10^3/uL (0.0-1.0); MONOCYTES % (AUTO) 9 % (0-12); NEUTROPHILS # (AUTO) 3.7 10^3/uL (1.8-7.8); NEUTROPHILS % (AUTO) 76 % (42-75); PLATELET COUNT 246 10^3/uL (130-400); WHITE BLOOD COUNT 4.8 10^3/uL (4.3-11.0)
[2023-02-16] MEDS ORDERED: inSUlin REGULAR (NovoLIN R) 1000 UNITS/10 ML VIAL ONE (21:51)
[2023-02-16 22:25] LABS: BUN/CREATININE RATIO 28; CARBON DIOXIDE 16 MMOL/L (21-32); CHLORIDE 73 MMOL/L (98-107); CREATININE SERUM 0.57 MG/DL (0.60-1.30); GFR ESTIMATED 122; POTASSIUM 4.5 MMOL/L (3.6-5.0); SODIUM 112 MMOL/L (135-145)
[2023-02-16 22:26] LABS: ALANINE AMINOTRANSFERASE 565 U/L (0-55); ALKALINE PHOSPHATASE 1016 U/L (40-136); BILIRUBIN,TOTAL 0.4 MG/DL (0.1-1.0); CALCIUM 8.9 MG/DL (8.5-10.1); GLUCOSE 1464 MG/DL (70-105); TOTAL PROTEIN 6.4 GM/DL (6.4-8.2)
[2023-02-16 22:27] LABS: ACETAMINOPHEN < 10 UG/ML (10-30); ALBUMIN 3.9 GM/DL (3.2-4.5); SALICYLATE < 0.3 MG/DL (5.0-20.0)
[2023-02-16] MEDS ORDERED: NS IV 1000 ML 1,000 ML IV STA (22:38)
[2023-02-16 22:52] LABS: BILIRUBIN,URINE NEGATIVE (NEGATIVE); CLARITY,URINE CLEAR; GLUCOSE, URINE (UA) 3+ (NEGATIVE); KETONES,URINE NEGATIVE (NEGATIVE); LEUKOCYTE ESTERASE ,URINE NEGATIVE (NEGATIVE); NITRITE,URINE NEGATIVE (NEGATIVE); PROTEIN,URINE NEGATIVE (NEGATIVE)
[2023-02-16 23:02] LABS: BACTERIA,URINE NEGATIVE /HPF; COLOR,URINE PALE YELLOW; WBC,URINE RARE /HPF; YEAST,URINE MODERATE /HPF
[2023-02-16 23:05] LABS: AMPHETAMINE SCREEN, URINE NEGATIVE (NEGATIVE); BARBITURATE SCREEN URINE NEGATIVE (NEGATIVE); BENZODIAZEPINES SCREEN URINE NEGATIVE (NEGATIVE); CANNABINOID SCREEN, URINE POSITIVE (NEGATIVE); COCAINE SCREEN URINE NEGATIVE (NEGATIVE); METHADONE STAT NEGATIVE (NEGATIVE); OPIATE SCREEN URINE NEGATIVE (NEGATIVE); OXYCODONE STAT NEGATIVE (NEGATIVE); PROPOXYPHENE STAT NEGATIVE (NEGATIVE); TRICYCLIC ANTIDEPRESSANTS SCRE NEGATIVE (NEGATIVE)
[2023-02-16 23:17] VITALS: BP 118/77
[2023-02-16] MEDS ORDERED: POTASSIUM CL 10MEQ/50ML IVPB 50 ML IV SCH (23:30)
[2023-02-17 00:55] LABS: HEMATOCRIT 29 % (40-54); HEMOGLOBIN 10.7 g/dL (13.3-17.7); MEAN CORPUSCULAR HEMOGLOBIN 33 pg (25-34); MEAN CORPUSCULAR HGB CONC 37 g/dL (32-36); MEAN CORPUSCULAR VOLUME 90 fL (80-99); MEAN PLATELET VOLUME 10.7 fL (9.0-12.2); PLATELET COUNT 227 10^3/uL (130-400); WHITE BLOOD COUNT 4.9 10^3/uL (4.3-11.0)
[2023-02-17] MEDS ORDERED: ONDANSETRON 4 MG (ZOFRAN) ORAL DISSOLVE TAB SL PRN (01:00)
[2023-02-17] MEDS ORDERED: D5 1/2 NS 1000 ML IV SOLUTION 1,000 ML IV PRN (01:00)
[2023-02-17] MEDS ORDERED: SENNA W/DOCUSATE (SENOKOT S) TABLET PO PRN (01:00)
[2023-02-17] MEDS ORDERED: 1/2 NS IV SOLUTION 1,000 ML IV PRN (01:00)
[2023-02-17] MEDS ORDERED: LORazepam 1 MG (ATIVAN) TAB PO PRN (01:00)
[2023-02-17] MEDS ORDERED: LORazepam INJ 2 MG/ML (ATIVAN) VIAL IM/IV PRN (01:00)
[2023-02-17] MEDS ORDERED: LORazepam INJ 2 MG/ML (ATIVAN) VIAL IV PRN (01:00)
[2023-02-17] MEDS ORDERED: ONDANSETRON 4 MG/2 ML (SDV) Z0FRAN IV PRN (01:00)
[2023-02-17] MEDS ORDERED: ANTACID SUSP 30 ML UDC (MYLANTA) PO PRN (01:00)
[2023-02-17] MEDS: POTASSIUM CL 10MEQ/50ML IVPB 50 ML IV SCH ×12 (01:00→23:35)
--- NOTE | 2023-02-17 01:06 | Tele-ICU Progress Note ---
Assessment/Plan Assessment/Plan 47-year-old male presenting with complaints of alcohol intoxication and elevated blood sugar. He states that he is not had anything to eat today and has been drinking. He does not know how much he drank. He has not taken any insulin since yesterday. He denies having any problems and states that he did not want to come to the emergency department. EMS reported that he was at a family member's house and that they were unable to get him out of the yard and inside the house so they had called EMS. He was recently admitted February 04 to [facility] in [place] for DKA and alcohol abuse. Vitals: VSS PE: NAD, moving all extremities, no respiratory issues Labs: CBC 4.8/10.4/246, CMP 112/4.5/73/16/16/0., LFTs all elevated, VBG 7.28/39/18, serum alcohol 203 Rads: None Diagnosis: #Etoh abue - CIWA protocol # DKA - insulin gtt - IVF # Pseudohyponatremia - IVF - trend BMP # Chronic liver disease - LFTs elevated on arrival - consider liver US if warranted in AM A total of 31 minutes of critical care time was devoted to this patient, including reviewing this patient's available data, including medical history, events of note and test results. Eri Durbin MD TeleICU This was required to treat and/or prevent further deterioration of critical care conditions ( as above ). Service provided to a patient admitted to ICU bed via interactive E-CARE system with real-time audio and video telecommunications from [facility]- ICU hub located in [place], [place] ERI DURBIN MD February 17, 2023 01:06
[2023-02-17 01:11] LABS: CALCIUM 9.1 MG/DL (8.5-10.1); CREATININE SERUM 1.27 MG/DL (0.60-1.30); POTASSIUM 3.2 MMOL/L (3.6-5.0)
[2023-02-17] MEDS: 1/2 NS IV SOLUTION 1,000 ML IV SCH ×7 (01:29→23:37)
[2023-02-17] MEDS ORDERED: NS IV 500 ML 500 ML IV PRN (01:30)
[2023-02-17 03:28] LABS: BASOPHILS % (AUTO) 1 % (0-10); EOSINOPHILS # (AUTO) 0.1 10^3/uL (0.0-0.3); EOSINOPHILS % (AUTO) 1 % (0-10); HEMATOCRIT 28 % (40-54); HEMOGLOBIN 10.3 g/dL (13.3-17.7); LYMPHOCYTES # (AUTO) 1.4 10^3/uL (1.0-4.0); LYMPHOCYTES % (AUTO) 30 % (12-44); MEAN CORPUSCULAR HEMOGLOBIN 33 pg (25-34); MEAN CORPUSCULAR HGB CONC 37 g/dL (32-36); MEAN CORPUSCULAR VOLUME 90 fL (80-99); MEAN PLATELET VOLUME 10.9 fL (9.0-12.2); MONOCYTES # (AUTO) 0.4 10^3/uL (0.0-1.0); MONOCYTES % (AUTO) 8 % (0-12); NEUTROPHILS # (AUTO) 2.8 10^3/uL (1.8-7.8); NEUTROPHILS % (AUTO) 60 % (42-75); PLATELET COUNT 222 10^3/uL (130-400); WHITE BLOOD COUNT 4.7 10^3/uL (4.3-11.0)
[2023-02-17 03:58] LABS: ALBUMIN 3.7 GM/DL (3.2-4.5); BILIRUBIN,TOTAL 0.3 MG/DL (0.1-1.0); CALCIUM 9.2 MG/DL (8.5-10.1); CREATININE SERUM 1.06 MG/DL (0.60-1.30); MAGNESIUM 2.2 MG/DL (1.6-2.4); POTASSIUM 3.3 MMOL/L (3.6-5.0); TOTAL PROTEIN 6.3 GM/DL (6.4-8.2)
[2023-02-17] MEDS: MAGNESIUM 1 GM/100 ML IVPB 100 ML IV SCH (04:05)
[2023-02-17] MEDS: KCL 20 MEQ TAB (K-DUR) PO SCH (04:05)
--- NOTE | 2023-02-17 06:37 | History & Physical ---
HPI History of Present Illness: Pt states he laid down in the front yard because he was tired and his legs hurt from neuropathy and his family called the ambulance because they thought more was going on, they thought he was drinking alcohol when it was tea per his report. He says he is feeling all right but needs to have his stent in his bile duct removed at [place], he doesn't have an appt, got a call yesterday from them but hasn't been able to return it because he was at work when he got the call. He states he last drank alcohol last night, thinks he had a half pint. He states he hadn't drank anything for a couple days prior to this. Source: patient Date seen by provider: February 17, 2023 Time Seen by Provider: 09:17 Attending Physician [place] PCP Admitting Physician: Derick Finnegan MD Attending Physician: Derick Finnegan MD Consult Date of Admission February 17, 2023 at 00:15 Home Medications Home Medications Reviewed patient Home Medication Reconciliation performed by pharmacy medication reconciliations results technician and/or nursing. Patients Allergies have been reviewed. Allergies Coded Allergies: No Known Drug Allergies (Unverified , 12/23/22) OBN-[id number]-Iltpih Hx Patient Social History Smoking Status: Current Everyday Smoker Alcohol Use?: Yes Tobacco type used: Cigarettes Have you traveled recently?: No Immunizations Up To Date First/Initial COVID19 Vaccinat: 3 SHOTS Second COVID19 Vaccination Jared: Unsure date Third COVID19 Vaccination Date: Unsure date COVID19 Vaccine Chemical Radiation Technician: NONE Past Medical History PMHx: Diabetes Neuropathy Pancreatitis SurgHx: Bile duct stent Family Medical History Significant Family History: Diabetes Review of Systems (CHC) Constitutional: No fever EENTM: No nose congestion, No throat pain Respiratory: cough (x a couple of days, nonproductive); No short of breath Cardiovascular: No chest pain Gastrointestinal: No abdominal pain, No constipation, No diarrhea, No nausea, No vomiting Genitourinary: No dysuria Musculoskeletal: muscle pain (legs), muscle cramps Skin: No rash Reviewed Test Results Reviewed Test Results Lab Laboratory Tests Test 02/16/23 21:44 02/16/23 22:44 02/17/23 00:45 02/17/23 03:00 Range/Units White Blood Count 4.8 4.9 4.7 4.3-11.0 10^3/uL Red Blood Count 3.23 L 3.26 L 3.14 L 4.30-5.52 10^6/uL Hemoglobin 10.4 L 10.7 L 10.3 L 13.3-17.7 g/dL Hematocrit 33 L 29 L 28 L 40-54 % Mean Corpuscular Volume 103 H 90 90 80-99 fL Mean Corpuscular Hemoglobin 32 33 33 25-34 pg Mean Corpuscular Hemoglobin Concent 31 L 37 H 37 H 32-36 g/dL Red Cell Distribution Width 13.3 12.2 12.0 10.0-14.5 % Platelet Count 246 227 222 130-400 10^3/uL Mean Platelet Volume 10.7 10.7 10.9 9.0-12.2 fL Immature Granulocyte % (Auto) 0 0 % Neutrophils (%) (Auto) 76 H 60 42-75 % Lymphocytes (%) (Auto) 14 30 12-44 % Monocytes (%) (Auto) 9 8 0-12 % Eosinophils (%) (Auto) 0 1 0-10 % Basophils (%) (Auto) 1 1 0-10 % Neutrophils # (Auto) 3.7 2.8 1.8-7.8 10^3/uL Lymphocytes # (Auto) 0.7 L 1.4 1.0-4.0 10^3/uL Monocytes # (Auto) 0.4 0.4 0.0-1.0 10^3/uL Eosinophils # (Auto) 0.0 0.1 0.0-0.3 10^3/uL Basophils # (Auto) 0.0 0.0 0.0-0.1 10^3/uL Immature Granulocyte # (Auto) 0.0 0.0 0.0-0.1 10^3/uL Venous Blood pH 7.28 L 7.31-7.41 Venous Blood Partial Pressure CO2 39 L 40-52 MMHG Venous Blood HCO3 18 L 22-28 MMOL/L Sodium Level 112 *L 124 #*L 129 L 135-145 MMOL/L Potassium Level 4.5 3.2 L 3.3 L 3.6-5.0 MMOL/L Chloride Level 73 L 88 L 92 L 98-107 MMOL/L Carbon Dioxide Level 16 L 18 L 21 21-32 MMOL/L Anion Gap 23 H 18 H 16 H 5-14 MMOL/L Blood Urea Nitrogen 16 13 11 7-18 MG/DL Creatinine 0.57 L 1.27 1.06 0.60-1.30 MG/DL Estimat Glomerular Filtration Rate 122 70 87 BUN/Creatinine Ratio 28 10 10 Glucose Level 1464 *H 862 *H 666 *H 70-105 MG/DL Calcium Level 8.9 9.1 9.2 8.5-10.1 MG/DL Corrected Calcium 9.0 9.4 8.5-10.1 MG/DL Total Bilirubin 0.4 0.3 0.1-1.0 MG/DL Aspartate Amino Transf (AST/SGOT) 788 H 581 H 5-34 U/L Alanine Aminotransferase (ALT/SGPT) 565 H 528 #H 0-55 U/L Alkaline Phosphatase 1016 H 818 H 40-136 U/L Total Protein 6.4 6.3 L 6.4-8.2 GM/DL Albumin 3.9 3.7 3.2-4.5 GM/DL Lipase 14 8-78 U/L Salicylates Level < 0.3 L 5.0-20.0 MG/DL Acetaminophen Level < 10 L 10-30 UG/ML Serum Alcohol 203 H <10 MG/DL Urine Color PALE YELLOW Urine Clarity CLEAR Urine pH 6.0 5-9 Urine Specific Gordon <=1.005 1.016-1.022 Urine Protein NEGATIVE NEGATIVE Urine Glucose (UA) 3+ H NEGATIVE Urine Ketones NEGATIVE NEGATIVE Urine Nitrite NEGATIVE NEGATIVE Urine Bilirubin NEGATIVE NEGATIVE Urine Urobilinogen 0.2 < = 1.0 MG/DL Urine Leukocyte Esterase NEGATIVE NEGATIVE Urine RBC (Auto) TRACE-I H NEGATIVE Urine RBC NONE /HPF Urine WBC RARE /HPF Urine Squamous Epithelial Cells NONE /HPF Urine Crystals NONE /LPF Urine Bacteria NEGATIVE /HPF Urine Casts NONE /LPF Urine Mucus NEGATIVE /LPF Urine Yeast MODERATE H /HPF Urine Culture Indicated YES Urine Opiates Screen NEGATIVE NEGATIVE Urine Oxycodone Screen NEGATIVE NEGATIVE Urine Methadone Screen NEGATIVE NEGATIVE Urine Propoxyphene Screen NEGATIVE NEGATIVE Urine Barbiturates Screen NEGATIVE NEGATIVE Ur Tricyclic Antidepressants Screen NEGATIVE NEGATIVE Urine Phencyclidine Screen NEGATIVE NEGATIVE Urine Amphetamines Screen NEGATIVE NEGATIVE Urine Methamphetamines Screen NEGATIVE NEGATIVE Urine Benzodiazepines Screen NEGATIVE NEGATIVE Urine Cocaine Screen NEGATIVE NEGATIVE Urine Cannabinoids Screen POSITIVE H NEGATIVE Beta-Hydroxybutyrate (Chem panel) 0.48 H 0.00-0.27 MMOL/L Phosphorus Level 2.0 L 2.3-4.7 MG/DL Magnesium Level 2.2 1.6-2.4 MG/DL Test 02/17/23 05:18 02/17/23 06:42 02/17/23 08:20 Range/Units Glucometer 523 *H 239 H 70-110 MG/DL Sodium Level 133 L 135-145 MMOL/L Potassium Level 3.6 3.6-5.0 MMOL/L Chloride Level 96 L 98-107 MMOL/L Carbon Dioxide Level 26 21-32 MMOL/L Anion Gap 11 5-14 MMOL/L Blood Urea Nitrogen 9 7-18 MG/DL Creatinine 0.80 0.60-1.30 MG/DL Estimat Glomerular Filtration Rate 110 BUN/Creatinine Ratio 11 Glucose Level 276 H 70-105 MG/DL Calcium Level 9.6 8.5-10.1 MG/DL Physical Exam-(CHC) Physical Exam Vital Signs VS - Last 72 Hours, by Label 02/16/23 02/16/23 02/17/23 02/17/23 21:32 23:17 00:10 00:10 Temp 36.7 36.9 Pulse 88 82 Resp 26 17 B/P (MAP) 111/57 (75) 118/77 Pulse Ox 96 98 97 O2 Delivery Room Air Room Air Room Air Room Air 02/17/23 02/17/23 02/17/23 02/17/23 00:24 00:39 00:45 01:00 Pulse 90 85 85 84 Resp 25 14 B/P (MAP) 121/75 (98) 95/85 (92) 110/76 (84) Pulse Ox 99 98 98 O2 Delivery Room Air Room Air Room Air 02/17/23 02/17/23 02/17/23 02/17/23 01:00 01:15 01:30 01:45 Pulse 84 82 80 87 Resp 21 20 19 17 B/P (MAP) 118/80 (94) 132/77 (101) 127/83 (89) 128/92 (98) Pulse Ox 98 100 98 100 O2 Delivery Room Air Room Air Room Air Room Air 02/17/23 02/17/23 02/17/23 02/17/23 02:00 03:00 04:00 04:00 Pulse 87 88 84 Resp 17 10 17 B/P (MAP) 105/68 (83) 126/69 (83) 105/73 (80) Pulse Ox 99 98 98 98 O2 Delivery Room Air Room Air Room Air Room Air 02/17/23 02/17/23 02/17/23 02/17/23 05:00 06:00 07:00 07:26 Pulse 86 84 85 89 Resp 17 17 10 B/P (MAP) 116/72 (81) 112/76 (85) 135/92 (106) Pulse Ox 99 99 100 O2 Delivery Room Air Room Air Room Air 02/17/23 02/17/23 02/17/23 02/17/23 08:00 08:00 09:00 10:00 Temp 36.3 Pulse 88 89 82 Resp 19 22 18 B/P (MAP) 136/117 (123) 130/85 (100) 145/96 (112) Pulse Ox 100 99 99 O2 Delivery Room Air Room Air Room Air 02/17/23 02/17/23 02/17/23 02/17/23 11:00 12:00 13:00 13:00 Pulse 77 86 90 90 Resp 25 21 29 B/P (MAP) 147/103 (118) 135/98 (110) 149/108 (122) Pulse Ox 99 100 100 O2 Delivery Room Air Room Air Room Air Capillary Refill : Less Than 3 Seconds General Appearance: no apparent distress Respiratory: lungs clear, normal breath sounds Cardiovascular: regular rate, rhythm, no murmur Gastrointestinal: normal bowel sounds, non tender, soft Extremities: pedal edema (1+ pitting edema to just below knees) Neurologic/Psychiatric: alert, normal mood/affect Skin: warm/dry Assessment/Plan Assessment/Plan Admission Status: Inpatient Order (span 2 midnights) Reason for Inpatient Admission: Severe DKA requiring insulin drip with superimposed acute hepatitis (1) DKA (diabetic ketoacidosis) Status: Acute Assessment & Plan: Started on insulin drip per protocol, glucose down to 200s this morning. Continue drip until gap closed. Qualifiers: Qualified Codes: E10.10 - Type 1 diabetes mellitus with ketoacidosis without coma (2) History of heavy alcohol consumption Status: Chronic Assessment & Plan: Monitor for signs of withdrawal (3) Elevated liver enzymes Status: Acute Assessment & Plan: Has history of pancreatitis and biliary stenting, current lipase is normal and he has no abdominal pain. Has had elevated LFTs in past, current admit above previous level, but trended down this am, suspect combina tion of alcoholic hepatitis and DKA/hypoperfusion. Monitor closely. (4) Acute alcohol intoxication Status: Acute Assessment & Plan: EtOH level elevated on admit, mental status normal this am. Qualifiers: Qualified Codes: F10.920 - Alcohol use, unspecified with intoxication, uncomplicated (5) Pseudohyponatremia Status: Acute Assessment & Plan: Secondary to hyperglycemia. (6) DVT prophylaxis Status: Acute Assessment & Plan: Enoxaparin DERICK FINNEGAN MD February 17, 2023 06:37
[2023-02-17 07:00] LABS: POTASSIUM 3.6 MMOL/L (3.6-5.0)
[2023-02-17] MEDS ORDERED: KCL 20 MEQ TAB (K-DUR) PO ONE ×2 (07:00→09:00)
[2023-02-17 07:01] LABS: CALCIUM 9.6 MG/DL (8.5-10.1)
[2023-02-17 07:05] LABS: CREATININE SERUM 0.8 MG/DL (0.60-1.30)
[2023-02-17] MEDS: D5 1/2 NS 1000 ML IV SOLUTION 1,000 ML IV SCH ×4 (08:24→23:36)
--- NOTE | 2023-02-17 10:44 | Diagnostic Imaging Report ---
EXAM: CHEST PA/LAT (2 VIEW). INDICATION: Cough. Lower extremity swelling. COMPARISON: Chest radiograph 02/04/2023. FINDINGS: Normal heart size and central pulmonary vascularity. Lungs are clear. No pleural effusion or pneumothorax. No acute osseous findings. IMPRESSION: No acute cardiopulmonary findings. Dictated by: Dictated on workstation # [id number]
[2023-02-17 14:43] LABS: POTASSIUM 4.2 MMOL/L (3.6-5.0)
[2023-02-17 14:44] LABS: CALCIUM 8.5 MG/DL (8.5-10.1)
[2023-02-17 14:49] LABS: CREATININE SERUM 0.69 MG/DL (0.60-1.30)
[2023-02-17] MEDS ORDERED: FURO20TA4 PO (15:23)
[2023-02-17] MEDS ORDERED: ROSU20TA32 PO (15:23)
[2023-02-17] MEDS: ENOXAPARIN INJECTION 30 MG/0.3 ML SYR SQ SCH (15:32)
[2023-02-17] MEDS ORDERED: LOPERAMIDE 2 MG (IMODIUM) TABLET PO NR (16:00)
[2023-02-17 22:53] LABS: POTASSIUM 4.2 MMOL/L (3.6-5.0)
[2023-02-17 22:54] LABS: CALCIUM 8.6 MG/DL (8.5-10.1)
[2023-02-17 22:58] LABS: CREATININE SERUM 0.65 MG/DL (0.60-1.30)
[2023-02-18] MEDS: 1/2 NS IV SOLUTION 1,000 ML IV SCH ×4 (03:39→15:30)
[2023-02-18 04:32] LABS: BASOPHILS % (AUTO) 0 % (0-10); EOSINOPHILS # (AUTO) 0.1 10^3/uL (0.0-0.3); EOSINOPHILS % (AUTO) 1 % (0-10); HEMATOCRIT 31 % (40-54); HEMOGLOBIN 11.4 g/dL (13.3-17.7); LYMPHOCYTES # (AUTO) 1.9 10^3/uL (1.0-4.0); LYMPHOCYTES % (AUTO) 17 % (12-44); MEAN CORPUSCULAR HEMOGLOBIN 33 pg (25-34); MEAN CORPUSCULAR HGB CONC 37 g/dL (32-36); MEAN CORPUSCULAR VOLUME 89 fL (80-99); MEAN PLATELET VOLUME 11.6 fL (9.0-12.2); MONOCYTES # (AUTO) 0.8 10^3/uL (0.0-1.0); MONOCYTES % (AUTO) 7 % (0-12); NEUTROPHILS # (AUTO) 8.3 10^3/uL (1.8-7.8); NEUTROPHILS % (AUTO) 74 % (42-75); PLATELET COUNT 207 10^3/uL (130-400); WHITE BLOOD COUNT 11.2 10^3/uL (4.3-11.0)
[2023-02-18 04:44] LABS: POTASSIUM 4.3 MMOL/L (3.6-5.0)
[2023-02-18 04:45] LABS: CALCIUM 8.8 MG/DL (8.5-10.1)
[2023-02-18 04:47] LABS: TOTAL PROTEIN 5.2 GM/DL (6.4-8.2)
[2023-02-18 04:48] LABS: BILIRUBIN,TOTAL 0.6 MG/DL (0.1-1.0)
[2023-02-18 04:50] LABS: CREATININE SERUM 0.61 MG/DL (0.60-1.30); PHOSPHORUS 2.6 MG/DL (2.3-4.7)
[2023-02-18 04:53] LABS: MAGNESIUM 1.8 MG/DL (1.6-2.4)
[2023-02-18] MEDS: KCL 20 MEQ TAB (K-DUR) PO SCH (05:08)
[2023-02-18] MEDS: MAGNESIUM 1 GM/100 ML IVPB 100 ML IV SCH ×3 (05:08→07:05)
[2023-02-18] MEDS: POTASSIUM CL 10MEQ/50ML IVPB 50 ML IV SCH (05:08)
[2023-02-18] MEDS: inSUlin ASPART (NovoLOG) 1 UNIT/0.01 ML (CHARGE PER UNIT) SC SCH ×7 (05:23→15:50)
[2023-02-18] MEDS ORDERED: MULTIVIT W/MINERALS TAB (THERAGRAN M) PO SCH (07:45)
[2023-02-18] MEDS ORDERED: THIAMINE 100 MG/ML 2 ML (VITAMIN B-1) VIAL IV ONE (07:45)
--- NOTE | 2023-02-18 07:50 | Tele-ICU Progress Note ---
Subjective Date Seen by a Provider: February 18, 2023 Time Seen by a Provider: 07:49 Subjective/Events-last exam (Tele-ICU Physician , Progress Note ) Service provided via interactive audio and video telecommunications E-CARE system to a patient admitted to ICU bed in [facility]. Patient is seen today due to persistent need of ICU care Available chart/ vitals / labs / Images reviewed Video assessment done using teleICU camera, rest of exam as per RN He is a 47-year-old -[place] male with past medical history of type 2 diabetes mellitus on insulin, peripheral neuropathy and alcohol abuse disorder admitted via emergency room due to alcohol intoxication and found to have a hyperglycemia. His alcohol level is elevated. He is admitted for further evaluation and management. Initially he required insulin drip to manage his hyperglycemia and currently his insulin drip has been discontinued and on currently sliding scale with coverage. In view of for he developing alcohol withdrawal syndrome he is admitted to intensive care unit and currently he is on a CIWA protocol. He is unable to give any detailed history. Impression 1. Hyperglycemia secondary to noncompliance with his insulin 2. Alcohol intoxication currently going through withdrawal 3. Cannabis abuse disorder. 4. abnormal liver enzymes probably due to alcoholic hepatitis Recommendations 1. Continue long-acting insulin along with sliding scale coverage 2. Hydration with IV fluids 3. CIWA protocol 4. We will start on thiamine and per multivitamins. 5. Suggest physical therapy once he recovers from alcohol withdrawal syndrome due to his underlying peripheral neuropathy. 6. DVT prophylaxis. 7. hepatitis profile I am remotely monitoring this patient from Tele icu station in [place]. I am unable to do the bedside exam, and history/physical and pertinent information is taken from other notes in the computer and bedside staff. Certain portions of this document may have been dictated utilizing voice recognition technology such as [employer]. Inherent to this technology, typographical and grammatical errors may exist. As much as I am diligent to identify and correct to these mistakes, some errors may remain in the document. Critical care time devoted to this patient today is approximately is-25 minutes Sepsis Event Evaluation Height, Weight, BMI Height: '" Weight: lbs. oz. kg; 19.83 BMI Method: Exam Exam Patient acknowledged, consented, and participated in this virtual visit which was conducted using real time audio/video Vital Signs Date Time Temp Pulse Resp B/P (MAP) Pulse Ox O2 Delivery O2 Flow Rate FiO2 02/18/23 06:00 84 22 124/82 (96) 99 Room Air 02/18/23 05:00 90 21 119/75 (85) 98 Room Air 02/18/23 04:21 100 Room Air 02/18/23 04:00 37.1 02/18/23 04:00 96 23 114/91 (98) 99 Room Air 02/18/23 03:00 97 17 122/79 (88) 99 Room Air 02/18/23 02:00 98 22 123/85 (94) 99 Room Air 02/18/23 01:00 102 02/18/23 01:00 102 24 133/103 (110) 98 Room Air 02/18/23 00:00 98 21 135/84 (94) 99 Room Air 02/18/23 00:00 37.3 02/17/23 23:59 100 Room Air 02/17/23 23:00 96 31 142/109 (121) 100 Room Air 02/17/23 22:00 90 22 131/96 (105) 99 Room Air 02/17/23 21:00 90 20 127/92 (100) 99 Room Air 02/17/23 20:34 36.7 02/17/23 20:30 99 Room Air 02/17/23 20:00 86 23 122/93 (98) 98 Room Air 02/17/23 19:00 90 20 115/98 (107) 99 Room Air 02/17/23 19:00 90 02/17/23 18:00 92 17 147/114 (125) 100 Room Air 02/17/23 17:00 85 12 137/99 (112) 99 Room Air 02/17/23 16:00 90 15 139/100 (113) 100 Room Air 02/17/23 16:00 98 Room Air 02/17/23 15:00 88 21 136/97 (110) 99 Room Air 02/17/23 14:00 90 22 138/96 (110) 100 Room Air 02/17/23 13:00 90 29 149/108 (122) 100 Room Air 02/17/23 13:00 90 02/17/23 12:00 86 21 135/98 (110) 100 Room Air 02/17/23 12:00 99 Room Air 02/17/23 12:00 36.5 02/17/23 11:00 77 25 147/103 (118) 99 Room Air 02/17/23 10:00 82 18 145/96 (112) 99 Room Air 02/17/23 09:00 89 22 130/85 (100) 99 Room Air 02/17/23 08:00 100 Room Air 02/17/23 08:00 36.3 02/17/23 08:00 88 19 136/117 (123) 100 Room Air I & O 02/18/23 07:00 Intake Total 8200 ml Output Total 4700 ml Balance 3500 ml Height & Weight Height: '" Weight: lbs. oz. kg; 19.83 BMI Method: General Appearance: No Apparent Distress, Chronically ill, Thin HEENT: PERRL/EOMI, Pharynx Normal Neck: Full Range of Motion, Normal Inspection, Non Tender, Supple Respiratory: Chest Non Tender, Lungs Clear, Normal Breath Sounds, No Accessory Muscle Use, No Respiratory Distress Cardiovascular: Regular Rate, Rhythm, Normal Peripheral Pulses Capillary Refill: Less Than 3 Seconds Gastrointestinal: normal bowel sounds, non tender, soft Extremity: Normal Capillary Refill, No Calf Tenderness, Pedal Edema (1+ pitting edema to bilateral lower extremities) Neurologic/Psychiatric: Alert, Oriented x3 Skin: Warm/Dry Results Lab Laboratory Tests 02/16/23 21:44 02/17/23 00:45 02/17/23 03:00 02/17/23 06:42 02/17/23 14:22 02/17/23 22:36 02/18/23 03:47 Assessment/Plan Assessment/Plan as above Critical Care: Critically Ill Patient Time spent with patient (mins): 25 AISHWARYA HICKMAN MD February 18, 2023 07:50
[2023-02-18] MEDS ORDERED: THIAMINE IV ONE (08:00)
[2023-02-18] MEDS ORDERED: NS IV ONE (08:00)
[2023-02-18] MEDS: ENOXAPARIN INJECTION 30 MG/0.3 ML SYR SQ SCH (15:22)
--- NOTE | 2023-02-18 16:30 | Diagnostic Imaging Report ---
PROCEDURE: US Abdomen, limited. TECHNIQUE: Multiple Real-time grayscale images were obtained over the abdomen in various projections. INDICATION: Elevated liver enzymes. COMPARISON: 02/04/2023. FINDINGS: No focal hepatic lesion. No nodular liver surface that would suggest cirrhosis. A trace amount of free fluid is seen around the liver. The main portal vein is patent with normal directional flow. The gallbladder is contracted without radiopaque gallstones. The common bile duct measures up to 0.6 cm in diameter. No intrahepatic biliary dilation. The visualized portions of the pancreas are normal. Portions of the head and tail are obscured by overlying bowel gas. The right kidney is normal in size. No hydronephrosis, shadowing calculi, or suspicious mass lesion. IMPRESSION: 1. Contracted gallbladder without stones. 2. Trace perihepatic fluid is similar to the recent CT. Dictated by: Dictated on workstation # [id number]
[2023-02-18 22:28] LABS: HEPATITIS C ANTIBODY C Non-Reactive (Non-Reactive)
== END 2023-02-18 16:45 | disposition home or self-care (01) | DRG 638 ==
LOC: EDUNIT# 21:31 → ER FS 21:32 → ICU 02-17 00:15
PROVIDERS: ADMIT Family Medicine; ATTEND Family Medicine
DX: E11.10 Type 2 diabetes mellitus with ketoacidosis without coma (principal); F10.139 Alcohol abuse with withdrawal, unspecified; F10.129 Alcohol abuse with intoxication, unspecified; K70.10 Alcoholic hepatitis without ascites; E11.42 Type 2 diabetes mellitus with diabetic polyneuropathy; T38.3X6A Underdosing of insulin and oral hypoglycemic [antidiabetic] drugs, initial encounter; I10 Essential (primary) hypertension; R56.9 Unspecified convulsions; F12.10 Cannabis abuse, uncomplicated; K76.9 Liver disease, unspecified; F17.210 Nicotine dependence, cigarettes, uncomplicated; Y90.7 Blood alcohol level of 200-239 mg/100 ml; Z91.128 Patient's intentional underdosing of medication regimen for other reason; Z79.4 Long term (current) use of insulin; Z79.899 Other long term (current) drug therapy
CPT/HCPCS: 36415; 71046; 76705; 80048; 80053; 80074; 80306; 80320; 80329; 81000; 82010; 82805; 82947; 83036; 83690; 83735; 84100; 85025; 85027; 87077; 87081; 87088; 87106; 93005; 93041